=== PATIENT | female | born 1960 | race Caucasian/White ===

== ENCOUNTER → 2017-07-21 14:03 | Outpatient (CLI) | payer OTHER, SELFPAY ==
[2017-07-21 14:29] LABS: Hematocrit 37.1 % (36-46); Hemoglobin 12.6 g/dL (12.0-16.0)
[2017-07-21 14:50] LABS: HEMOLYSIS < 15 (0-50); Iron 91 ug/dL (37-170)
[2017-07-21 14:53] LABS: Blood Urea Nitrogen 17 mg/dL (7-17); Calcium 9.3 mg/dL (8.4-10.2); Carbon Dioxide 28 mmol/L (22-32); Chloride 100 mmol/L (98-107); Estimated Glomerular Filt Rate 57.1 mL/min (>60); Glucose 100 mg/dL (70-100); HEMOLYSIS < 15 (0-50); Potassium 4.5 mmol/L (3.4-5.1); Sodium 138 mmol/L (137-145)
[2017-07-21 15:01] LABS: Percent Iron Saturation 25 % (15-50); Total Iron Binding Capacity 363 ug/dL (265-497); Transferrin 295 mg/dL (206-381)
[2017-07-21 15:06] LABS: Creatinine Urine Random 19.6 mg/dL; Protein (Total) Urine Random 13 mg/dL (0-12); Protein Creatinine Ratio Urine 0.66 GRAM/24H
[2017-07-21 15:26] LABS: Ferritin 19.6 ng/mL (11.1-264)
== END ==
PROVIDERS: PCP Physician Assistant; Visit Provider Student in an Organized Health Care Education/Training Program
DX: N05.9 Unspecified nephritic syndrome with unspecified morphologic changes (principal); E50.0 Vitamin A deficiency with conjunctival xerosis; R80.9 Proteinuria, unspecified; D64.9 Anemia, unspecified; D50.0 Iron deficiency anemia secondary to blood loss (chronic)
CPT/HCPCS: 36415; 80048; 82570; 82728; 83540; 83550; 84156; 85014; 85018

== ENCOUNTER → 2017-09-25 13:01 | Outpatient (CLI) | payer OTHER, SELFPAY ==
[2017-09-25 13:36] LABS: Add Manual Diff / Slide Review NO; Basophils Percent Auto 0.6 % (0-2); Eosinophils Percent Auto 1.1 % (2-4); Hematocrit 37.6 % (36-46); Hemoglobin 12.6 g/dL (12.0-16.0); Lymphocytes Percent Auto 33.3 % (25-40); Mean Corpuscular HGB Conc 33.6 % (30-36); Mean Corpuscular Volume 89.3 fL (80-100); Neutrophils Absolute Auto 3400 /uL (3000-5900); Platelet Count 225 X10^3/uL (150-400); Red Blood Cell Count 4.21 X10^6/uL (4.0-5.2); Red Cell Distribution Width 12.7 % (11.6-14.8); White Blood Cell Count 6.1 X10^3/uL (4.5-11.0)
[2017-09-25 13:46] LABS: Appearance Urine UA CLEAR; Bilirubin Urine UA NEGATIVE (NEGATIVE); Color Urine UA YELLOW; Glucose Urine UA NEGATIVE (Normal); Ketones Urine UA NEGATIVE (NEGATIVE); Leukocyte Esterase Urine UA NEGATIVE (NEGATIVE); Nitrite Urine UA Negative (Negative); Occult Blood Urine UA 1+ (Negative); Protein Urine UA NEGATIVE (Negative); Urobilinogen Urine UA 0.2 E.U./dL (0.2); pH Urine UA 5.5 (4.5-8.0)
[2017-09-25 14:42] LABS: Free T3, Triiodothyronine Free 2.71 pg/mL (2.77-5.27)
[2017-09-25 14:55] LABS: Cortisol Random 6.66 ug/dL
[2017-09-25 14:57] LABS: TSH w/ Reflex to FT4 1.84 uIU/mL (0.47-4.68)
[2017-09-25 15:13] LABS: Vitamin B12 439 pg/mL (239-931)
== END ==
PROVIDERS: PCP Physician Assistant
DX: E03.9 Hypothyroidism, unspecified (principal); R53.83 Other fatigue
CPT/HCPCS: 36415; 81003; 82533; 82607; 84443; 84481; 85025

== ENCOUNTER → 2017-10-07 16:00 | Outpatient (CLI) | payer OTHER, SELFPAY | PROVIDERS: PCP Physician Assistant; Visit Provider Physician Assistant | DX: L02.31 Cutaneous abscess of buttock (principal) | CPT/HCPCS: 87070; 87075; 87205 ==

== ENCOUNTER → 2017-11-03 14:26 | Outpatient (CLI) | payer OTHER, SELFPAY ==
[2017-11-03 16:06] LABS: BUN Creatinine Ratio 14.5 (6-22); Blood Urea Nitrogen 16 mg/dL (7-17); Calcium 10.2 mg/dL (8.4-10.2); Carbon Dioxide 27 mmol/L (22-32); Chloride 102 mmol/L (98-107); Estimated Glomerular Filt Rate 51.2 mL/min (>60); Glucose 112 mg/dL (70-100); HEMOLYSIS < 15 (0-50); Potassium 3.9 mmol/L (3.4-5.1); Sodium 141 mmol/L (137-145)
[2017-11-03 17:57] LABS: Creatinine Urine Random 53.9 mg/dL; Protein (Total) Urine Random 10 mg/dL (0-12); Protein Creatinine Ratio Urine 0.18 GRAM/24H
== END ==
PROVIDERS: Family Provider Physician Assistant; PCP Physician Assistant; Visit Provider Student in an Organized Health Care Education/Training Program
DX: N05.9 Unspecified nephritic syndrome with unspecified morphologic changes (principal); R80.9 Proteinuria, unspecified
CPT/HCPCS: 36415; 80048; 82570; 84156

== ENCOUNTER → 2017-11-12 11:56 | Outpatient (CLI) | payer OTHER, SELFPAY ==
--- NOTE | 2017-11-12 11:58 | DI.MG.S_ITS ---
BILATERAL DIGITAL SCREENING MAMMOGRAM 3D/2D WITH CAD: 11/12/2017 CLINICAL: Routine screening. Comparison is made to exams dated: 10/23/2016 mammogram, 10/19/2015 mammogram, and 10/14/2014 mammogram - [facility]. There are scattered fibroglandular elements in both breasts. Current study was also evaluated with a Computer Aided Detection (CAD) system. No significant masses, calcifications, or other findings are seen in either breast. There has been no significant interval change. IMPRESSION: NEGATIVE There is no mammographic evidence of malignancy. A 1 year screening mammogram is recommended.(11/13/2018) NOTE: For mammograms, a report in lay terms will be sent to the patient. Approximately 15% of breast malignancies will not be visualized mammographically. In the management of a palpable breast mass, a negative mammogram must not discourage biopsy of a clinically suspicious lesion. Electronically Signed By: Darling copeland/marquise:11/12/2017 12:21:32 letter sent: Normal Exam ACR BI-RADS Category 1: Negative 3341F
== END ==
PROVIDERS: PCP Physician Assistant; Visit Provider Physician Assistant
DX: Z12.31 Encounter for screening mammogram for malignant neoplasm of breast (principal); Z78.0 Asymptomatic menopausal state; N18.9 Chronic kidney disease, unspecified; Z90.722 Acquired absence of ovaries, bilateral
CPT/HCPCS: 77063; 77067; 77080

== ENCOUNTER → 2018-01-21 08:12 | Outpatient (CLI) | payer OTHER, SELFPAY ==
[2018-01-21 08:46] LABS: Hematocrit 37.5 % (36-46); Hemoglobin 12.9 g/dL (12.0-16.0)
[2018-01-21 09:27] LABS: Blood Urea Nitrogen 16 mg/dL (7-17); Calcium 9.3 mg/dL (8.4-10.2); Carbon Dioxide 24 mmol/L (22-32); Chloride 105 mmol/L (98-107); Estimated Glomerular Filt Rate 56.9 mL/min (>60); Glucose 101 mg/dL (70-100); HEMOLYSIS < 15 (0-50); Potassium 4.3 mmol/L (3.4-5.1); Sodium 139 mmol/L (137-145)
[2018-01-21 09:28] LABS: HEMOLYSIS < 15 (0-50); Iron 64 ug/dL (37-170)
[2018-01-21 09:30] LABS: Creatinine Urine Random 56.5 mg/dL; Protein (Total) Urine Random 9 mg/dL (0-12); Protein Creatinine Ratio Urine 0.15 GRAM/24H
[2018-01-21 09:33] LABS: Cholesterol 227 mg/dL (140-199); HDL Cholesterol 72 mg/dL (40-60); LDL Cholesterol Calculated 125 mg/dL (<100); Triglycerides 150 mg/dL (35-150); Uric Acid 5.6 mg/dL (2.5-6.2)
[2018-01-21 09:39] LABS: Percent Iron Saturation 17 % (15-50); Total Iron Binding Capacity 380 ug/dL (265-497); Transferrin 332 mg/dL (206-381)
[2018-01-21 09:43] LABS: Vitamin D 25 Hydroxy (D3) 41.7 ng/mL (30.0-100.0)
[2018-01-21 10:05] LABS: Ferritin 10.5 ng/mL (11.1-264)
[2018-01-22 13:51] LABS: Parathyroid Hormone Int 4 pg/mL (14-64)
== END ==
PROVIDERS: Family Provider Physician Assistant; PCP Physician Assistant; Visit Provider Student in an Organized Health Care Education/Training Program
DX: N05.9 Unspecified nephritic syndrome with unspecified morphologic changes (principal); D50.0 Iron deficiency anemia secondary to blood loss (chronic); D64.9 Anemia, unspecified; N25.81 Secondary hyperparathyroidism of renal origin; R80.9 Proteinuria, unspecified; I10 Essential (primary) hypertension; Z13.220 Encounter for screening for lipoid disorders; Z13.6 Encounter for screening for cardiovascular disorders; R53.83 Other fatigue
CPT/HCPCS: 36415; 80048; 80061; 82306; 82570; 82728; 83540; 83550; 83970; 84156; 84550; 85014; 85018

== ENCOUNTER → 2018-01-28 16:12 | Outpatient (CLI) | payer OTHER, SELFPAY ==
[2018-01-28 17:33] LABS: Magnesium 1.9 mg/dL (1.6-2.3)
[2018-01-31 12:09] LABS: Parathyroid Hormone Int 55 pg/mL (14-64)
== END ==
PROVIDERS: PCP Physician Assistant; Visit Provider Student in an Organized Health Care Education/Training Program
DX: E83.40 Disorders of magnesium metabolism, unspecified (principal); N25.81 Secondary hyperparathyroidism of renal origin
CPT/HCPCS: 36415; 83735; 83970

== ENCOUNTER → 2018-06-05 14:07 | Outpatient (CLI) | payer OTHER, SELFPAY ==
[2018-06-05 15:08] LABS: Hematocrit 36.4 % (36-46); Hemoglobin 12.4 g/dL (12.0-16.0)
[2018-06-05 16:27] LABS: BUN Creatinine Ratio 17.3 (6-22); Blood Urea Nitrogen 19 mg/dL (7-17); Calcium 9.3 mg/dL (8.4-10.2); Carbon Dioxide 25 mmol/L (22-32); Chloride 101 mmol/L (98-107); Glucose 83 mg/dL (70-100); HEMOLYSIS < 15 (0-50); Potassium 4.1 mmol/L (3.4-5.1); Sodium 136 mmol/L (137-145)
[2018-06-05 16:29] LABS: Creatinine Urine Random 36.7 mg/dL; Protein (Total) Urine Random 10 mg/dL (0-12); Protein Creatinine Ratio Urine 0.27 GRAM/24H
[2018-06-09 15:23] LABS: Parathyroid Hormone Int 49 pg/mL (14-64)
== END ==
PROVIDERS: PCP Physician Assistant; Visit Provider Student in an Organized Health Care Education/Training Program
DX: N05.9 Unspecified nephritic syndrome with unspecified morphologic changes (principal); D64.9 Anemia, unspecified; N25.81 Secondary hyperparathyroidism of renal origin; R80.9 Proteinuria, unspecified
CPT/HCPCS: 36415; 80048; 82570; 83970; 84156; 85014; 85018

== ENCOUNTER → 2018-08-14 12:18 | Outpatient (CLI) | payer OTHER, SELFPAY ==
[2018-08-14 13:55] LABS: Blood Urea Nitrogen 17 mg/dL (7-17); Calcium 9.4 mg/dL (8.4-10.2); Carbon Dioxide 26 mmol/L (22-32); Chloride 103 mmol/L (98-107); Estimated Glomerular Filt Rate 56.9 mL/min (>60); Glucose 93 mg/dL (70-100); HEMOLYSIS < 15 (0-50); Potassium 4.8 mmol/L (3.4-5.1); Sodium 138 mmol/L (137-145)
== END ==
PROVIDERS: PCP Physician Assistant; Visit Provider Student in an Organized Health Care Education/Training Program
DX: N05.9 Unspecified nephritic syndrome with unspecified morphologic changes (principal)
CPT/HCPCS: 36415; 80048

== ENCOUNTER → 2018-11-16 13:20 | Outpatient (CLI) | payer OTHER, SELFPAY ==
--- NOTE | 2018-11-16 | DI.MG.S_ITS ---
BILATERAL DIGITAL SCREENING MAMMOGRAM 3D/2D WITH CAD: 11/16/2018 Comparison is made to exams dated: 11/12/2017 mammogram, 10/23/2016 mammogram, and 10/19/2015 mammogram - [facility]. There are scattered fibroglandular elements in both breasts. Current study was also evaluated with a Computer Aided Detection (CAD) system. No significant masses, calcifications, or other findings are seen in either breast. There has been no significant interval change. IMPRESSION: NEGATIVE There is no mammographic evidence of malignancy. A 1 year screening mammogram is recommended. This exam was interpreted at Station ID: [id number]. NOTE: For mammograms, a report in lay terms will be sent to the patient. Approximately 15% of breast malignancies will not be visualized mammographically. In the management of a palpable breast mass, a negative mammogram must not discourage biopsy of a clinically suspicious lesion. Electronically Signed By: Fam hamilton/marquise:11/16/2018 14:56:02 letter sent: Normal Exam ACR BI-RADS Category 1: Negative 3341F
== END ==
PROVIDERS: PCP Physician Assistant; Visit Provider Physician Assistant
DX: Z12.31 Encounter for screening mammogram for malignant neoplasm of breast (principal)
CPT/HCPCS: 77063; 77067

== ENCOUNTER → 2018-12-21 08:17 | Outpatient (CLI) | payer OTHER, SELFPAY ==
[2018-12-21 09:09] LABS: Hematocrit 37.4 % (36-46); Hemoglobin 12.9 g/dL (12.0-16.0)
[2018-12-21 10:02] LABS: Alanine Aminotransferase 21 IU/L (<35); Albumin 4.4 g/dL (3.5-5.0); Albumin Globulin Ratio 1.5 (1.0-2.8); Alkaline Phosphatase 45 U/L (38-126); Aspartate Aminotransferase 29 IU/L (14-36); BUN Creatinine Ratio 15.6 (6-22); Bilirubin Total 0.5 mg/dL (0.2-1.3); Blood Urea Nitrogen 14 mg/dL (7-17); Calcium 9.4 mg/dL (8.4-10.2); Carbon Dioxide 26 mmol/L (22-32); Chloride 103 mmol/L (98-107); Cholesterol 232 mg/dL (140-199); Estimated Glomerular Filt Rate > 60.0 mL/min (>60); Glucose 102 mg/dL (70-100); HDL Cholesterol 57 mg/dL (40-60); HEMOLYSIS < 15 (0-50); LDL Cholesterol Calculated 132 mg/dL (<100); Potassium 4.2 mmol/L (3.4-5.1); Sodium 138 mmol/L (137-145); Total Protein 7.4 g/dL (6.3-8.2); Triglycerides 217 mg/dL (35-150)
[2018-12-21 10:45] LABS: Creatinine Urine Random 82.9 mg/dL
[2018-12-21 10:47] LABS: Creatinine Urine Random 83.5 mg/dL; Microalbumi Creatinin Ratio Ur 16.8 ug/mg CR (<30); Microalbumin Urine Random 1.4 mg/dL (0-1.6); Protein (Total) Urine Random 10 mg/dL (0-12); Protein Creatinine Ratio Urine 0.11 GRAM/24H
[2018-12-25 15:45] LABS: Parathyroid Hormone Int 25 pg/mL (14-64)
== END ==
PROVIDERS: Family Provider Student in an Organized Health Care Education/Training Program; PCP Physician Assistant; Visit Provider Physician Assistant
DX: N05.9 Unspecified nephritic syndrome with unspecified morphologic changes (principal); D64.9 Anemia, unspecified; N25.81 Secondary hyperparathyroidism of renal origin; R80.9 Proteinuria, unspecified; E03.9 Hypothyroidism, unspecified; E78.5 Hyperlipidemia, unspecified; I10 Essential (primary) hypertension; N18.3 Chronic kidney disease, stage 3 (moderate)
CPT/HCPCS: 36415; 80053; 80061; 82043; 82570; 83970; 84156; 84443; 85014; 85018

== ENCOUNTER → 2019-02-12 08:48 | Outpatient (CLI) | payer OTHER, SELFPAY ==
[2019-02-12 10:18] LABS: Blood Urea Nitrogen 13 mg/dL (7-17); Calcium 9.5 mg/dL (8.4-10.2); Carbon Dioxide 26 mmol/L (22-32); Chloride 103 mmol/L (98-107); Cholesterol 208 mg/dL (140-199); Estimated Glomerular Filt Rate 56.7 mL/min (>60); Glucose 99 mg/dL (70-100); HDL Cholesterol 72 mg/dL (40-60); HEMOLYSIS < 15 (0-50); LDL Cholesterol Calculated 96 mg/dL (<100); Potassium 4.5 mmol/L (3.4-5.1); Sodium 138 mmol/L (137-145); Triglycerides 201 mg/dL (35-150)
== END ==
PROVIDERS: PCP Physician Assistant; Visit Provider Physician Assistant
DX: E78.5 Hyperlipidemia, unspecified (principal); I10 Essential (primary) hypertension
CPT/HCPCS: 36415; 80048; 80061

== ENCOUNTER → 2019-04-08 12:09 | Outpatient (CLI) | payer OTHER, SELFPAY ==
[2019-04-08 13:02] LABS: Hematocrit 39.2 % (36-46); Hemoglobin 13.2 g/dL (12.0-16.0)
[2019-04-08 13:12] LABS: BUN Creatinine Ratio 21.1 (6-22); Blood Urea Nitrogen 19 mg/dL (7-17); Calcium 9.6 mg/dL (8.4-10.2); Carbon Dioxide 27 mmol/L (22-32); Chloride 103 mmol/L (98-107); Estimated Glomerular Filt Rate > 60.0 mL/min (>60); Glucose 103 mg/dL (70-100); HEMOLYSIS < 15 (0-50); Potassium 4.4 mmol/L (3.4-5.1); Sodium 139 mmol/L (137-145)
[2019-04-08 15:37] LABS: Creatinine Urine Random 130.6 mg/dL; Protein (Total) Urine Random 10 mg/dL (0-12); Protein Creatinine Ratio Urine 0.07 GRAM/24H
[2019-04-10 15:29] LABS: Parathyroid Hormone Int 23 pg/mL (14-64)
== END ==
PROVIDERS: PCP Physician Assistant; Referring Provider Student in an Organized Health Care Education/Training Program; Visit Provider Student in an Organized Health Care Education/Training Program
DX: N05.9 Unspecified nephritic syndrome with unspecified morphologic changes (principal); D64.9 Anemia, unspecified; N25.81 Secondary hyperparathyroidism of renal origin; R80.9 Proteinuria, unspecified
CPT/HCPCS: 36415; 80048; 82570; 83970; 84156; 85014; 85018

== ENCOUNTER → 2019-04-13 13:51 | Outpatient (CLI) | payer OTHER, SELFPAY ==
[2019-04-13 14:30] LABS: Influenza A - CEPHEID Flu A NEGATIVE (NEGATIVE); Influenza B - CEPHEID Flu B NEGATIVE (NEGATIVE)
== END ==
PROVIDERS: PCP Physician Assistant; Visit Provider Physician Assistant
DX: R68.89 Other general symptoms and signs (principal)
CPT/HCPCS: 87502

== ENCOUNTER → 2019-09-08 15:08 | Outpatient (CLI) | payer OTHER, SELFPAY ==
[2019-09-08 15:27] LABS: Bacteria Urine None Seen; WBC Urine None Seen (0-5/HPF)
[2019-09-08 16:09] LABS: Appearance Urine UA CLEAR; Bilirubin Urine UA NEGATIVE (NEGATIVE); Color Urine UA YELLOW; Glucose Urine UA NEGATIVE (Negative); Ketones Urine UA NEGATIVE (NEGATIVE); Leukocyte Esterase Urine UA NEGATIVE (NEGATIVE); Nitrite Urine UA NEGATIVE (Negative); Occult Blood Urine UA 2+ (Negative); Protein Urine UA NEGATIVE (Negative); Urobilinogen Urine UA 0.2 E.U./dL (0.2)
[2019-09-08 16:11] LABS: Add Manual Diff / Slide Review NO; Basophils Absolute Auto 100 /uL (0-100); Basophils Percent Auto 0.7 % (0-2); Eosinophils Absolute Auto 100 /uL (0-450); Eosinophils Percent Auto 1.3 % (2-4); Hematocrit 37.6 % (36-46); Hemoglobin 12.6 g/dL (12.0-16.0); Lymphocytes Absolute Auto 1900 /uL (1100-4500); Lymphocytes Percent Auto 24.6 % (25-40); Mean Corpuscular HGB Conc 33.5 % (30-36); Mean Corpuscular Hemoglobin 30.4 PG (26-34); Mean Corpuscular Volume 90.7 fL (80-100); Monocytes Absolute Auto 500 /uL (0-900); Monocytes Percent Auto 6.5 % (3-14); Neutrophils Absolute Auto 5100 /uL (1500-7000); Neutrophils Percent Auto 66.9 % (50-75); Platelet Count 256 X10^3/uL (150-400); Red Blood Cell Count 4.15 X10^6/uL (4.0-5.2); Red Cell Distribution Width 12.5 % (11.6-14.8); White Blood Cell Count 7.7 X10^3/uL (4.5-11.0)
[2019-09-08 16:14] LABS: Culture Indicated Urine Cult Not Indicated; RBC Urine 1-5/HPF (0-5/HPF); Squamous Epithelial Cell Urine 0-1 /HPF (0-5/HPF)
[2019-09-08 16:15] LABS: Creatinine Urine Random 94.4 mg/dL; Protein (Total) Urine Random 6 mg/dL (0-12); Protein Creatinine Ratio Urine 0.06 GRAM/24H
[2019-09-08 16:20] LABS: HEMOLYSIS 19 (0-50); Iron 95 ug/dL (37-170)
[2019-09-08 16:22] LABS: Albumin 4.4 g/dL (3.5-5.0); BUN Creatinine Ratio 18.7 (6-22); Blood Urea Nitrogen 20 mg/dL (7-17); Calcium 9.7 mg/dL (8.4-10.2); Carbon Dioxide 27 mmol/L (22-32); Chloride 102 mmol/L (98-107); Estimated Glomerular Filt Rate 52.5 mL/min (>60); Glucose 107 mg/dL (70-100); HEMOLYSIS < 15 (0-50); Magnesium 1.8 mg/dL (1.6-2.3); Phosphorous 3.5 mg/dL (2.5-4.5); Potassium 4.1 mmol/L (3.4-5.1); Sodium 136 mmol/L (137-145)
[2019-09-08 16:32] LABS: Percent Iron Saturation 28 % (15-50); Total Iron Binding Capacity 338 ug/dL (265-497); Transferrin 281 mg/dL (206-381)
[2019-09-08 16:36] LABS: Vitamin D 25 Hydroxy (D3) 37.6 ng/mL (30.0-100.0)
[2019-09-09 08:11] LABS: Parathyroid Hormone Int 40 pg/mL (15-65)
== END ==
PROVIDERS: PCP Internal Medicine; Referring Provider Internal Medicine Nephrology; Visit Provider Internal Medicine Nephrology
DX: N18.3 Chronic kidney disease, stage 3 (moderate) (principal); N25.81 Secondary hyperparathyroidism of renal origin; D63.1 Anemia in chronic kidney disease
CPT/HCPCS: 36415; 80069; 81001; 82306; 82570; 83540; 83550; 83735; 83970; 84156; 85025

== ENCOUNTER → 2019-09-13 13:24 | Outpatient (CLI) | payer OTHER, SELFPAY ==
[2019-09-13 14:27] LABS: Estimated Glomerular Filt Rate 57.4 mL/min (>60)
[2019-09-13 16:24] LABS: Collection Time Urine 24 Hours; Creatinine Urine Random 64.7 mg/dL; Patient Height Urine 63 inches; Patient Weight Urine 160 lbs; Total Volume Urine 1500 mL
[2019-09-14 00:29] LABS: Creat Clearance, Corrected 67.2 mL/MIN; Creatinine Clearance Urine 68.1 mL/MIN; Creatinine, Serum (CRCL) 0.99 mg/dL (0.52-1.04)
[2019-09-14 06:06] LABS: 24 Hour Ur Protein Calculated 72 mg/24 hr (30-150)
== END ==
PROVIDERS: PCP Internal Medicine; Referring Provider Internal Medicine Nephrology; Visit Provider Internal Medicine Nephrology
DX: N18.3 Chronic kidney disease, stage 3 (moderate) (principal); N25.81 Secondary hyperparathyroidism of renal origin
CPT/HCPCS: 36415; 82565; 82575; 84156

== ENCOUNTER → 2019-11-19 15:12 | Outpatient (CLI) | payer OTHER, SELFPAY ==
--- NOTE | 2019-11-19 | DI.MG.S_ITS ---
BILATERAL DIGITAL SCREENING MAMMOGRAM 3D/2D WITH CAD: 11/19/2019 CLINICAL: Routine screening. Comparison is made to exams dated: 11/16/2018 mammogram, 11/12/2017 mammogram, and 10/23/2016 mammogram - [facility]. There are scattered fibroglandular elements in both breasts. Current study was also evaluated with a Computer Aided Detection (CAD) system. No significant masses, calcifications, or other findings are seen in either breast. There has been no significant interval change. IMPRESSION: NEGATIVE There is no mammographic evidence of malignancy. A 1 year screening mammogram is recommended. This exam was interpreted at Station ID: [id number]. NOTE: For mammograms, a report in lay terms will be sent to the patient. Approximately 15% of breast malignancies will not be visualized mammographically. In the management of a palpable breast mass, a negative mammogram must not discourage biopsy of a clinically suspicious lesion. Electronically Signed By: Fam hamilton/marquise:11/19/2019 17:05:23 letter sent: Normal Exam ACR BI-RADS Category 1: Negative 3341F
== END ==
PROVIDERS: PCP Internal Medicine; Referring Provider Internal Medicine; Visit Provider Internal Medicine
DX: Z12.31 Encounter for screening mammogram for malignant neoplasm of breast (principal)
CPT/HCPCS: 77063; 77067

== ENCOUNTER → 2020-03-06 10:10 | Outpatient (CLI) | payer OTHER, SELFPAY ==
[2020-03-06 10:55] LABS: Add Manual Diff / Slide Review NO; Basophils Absolute Auto 0 /uL (0-100); Basophils Percent Auto 0.5 % (0-2); Eosinophils Absolute Auto 100 /uL (0-450); Eosinophils Percent Auto 1.6 % (2-4); Hematocrit 39.4 % (36-46); Lymphocytes Absolute Auto 1500 /uL (1100-4500); Lymphocytes Percent Auto 24.4 % (25-40); Mean Corpuscular HGB Conc 32.9 % (30-36); Mean Corpuscular Hemoglobin 29.3 PG (26-34); Mean Corpuscular Volume 88.9 fL (80-100); Monocytes Absolute Auto 500 /uL (0-900); Neutrophils Absolute Auto 3900 /uL (1500-7000); Neutrophils Percent Auto 64.5 % (50-75); Platelet Count 236 X10^3/uL (150-400); Red Blood Cell Count 4.43 X10^6/uL (4.0-5.2); Red Cell Distribution Width 12.2 % (11.6-14.8); White Blood Cell Count 6.1 X10^3/uL (4.5-11.0)
[2020-03-06 11:25] LABS: Alanine Aminotransferase 17 IU/L (<35); Albumin 4.5 g/dL (3.5-5.0); Albumin Globulin Ratio 1.4 (1.0-2.8); Alkaline Phosphatase 49 U/L (38-126); Aspartate Aminotransferase 26 IU/L (14-36); BUN Creatinine Ratio 16.2 (6-22); Bilirubin Total 0.3 mg/dL (0.2-1.3); Blood Urea Nitrogen 18 mg/dL (7-17); Calcium 9.3 mg/dL (8.4-10.2); Carbon Dioxide 29 mmol/L (22-32); Chloride 102 mmol/L (98-107); Cholesterol 201 mg/dL (140-199); Estimated Glomerular Filt Rate 50.1 mL/min (>60); Globulin 3.3 g/dL (1.7-4.1); Glucose 103 mg/dL (80-110); HDL Cholesterol 65 mg/dL (40-60); HEMOLYSIS < 15 (0-50); LDL Cholesterol Calculated 97 mg/dL (<100); Potassium 4.1 mmol/L (3.4-5.1); Sodium 136 mmol/L (137-145); Total Protein 7.8 g/dL (6.3-8.2); Triglycerides 195 mg/dL (35-150)
[2020-03-06 11:53] LABS: Free T4, Direct Thyroxine 1.37 ng/dL (0.78-2.19)
[2020-03-06 12:07] LABS: Thyroid Stimulating Hormone 1.22 uIU/mL (0.47-4.68)
== END ==
PROVIDERS: PCP Internal Medicine; Referring Provider Internal Medicine; Visit Provider Internal Medicine
DX: E03.9 Hypothyroidism, unspecified (principal); E78.5 Hyperlipidemia, unspecified; I10 Essential (primary) hypertension; N18.30 Chronic kidney disease, stage 3 unspecified
CPT/HCPCS: 36415; 80053; 80061; 84439; 84443; 85025

== ENCOUNTER → 2020-05-18 13:28 | Outpatient (CLI) | payer OTHER, SELFPAY ==
[2020-05-18] MEDS: COVID-19 VACC, Ad26(JANSSEN)/PF 0.5 ML IM (13:34)
== END ==
PROVIDERS: PCP Internal Medicine; Visit Provider Internal Medicine
DX: Z23 Encounter for immunization (principal)
CPT/HCPCS: 0031A; 91303

== ENCOUNTER → 2020-08-11 10:17 | Outpatient (CLI) | payer OTHER, SELFPAY ==
[2020-08-11 11:44] LABS: Add Manual Diff / Slide Review NO; Basophils Absolute Auto 0 /uL (0-100); Basophils Percent Auto 0.8 % (0-2); Eosinophils Absolute Auto 100 /uL (0-450); Eosinophils Percent Auto 2.1 % (2-4); Hematocrit 38.5 % (36-46); Hemoglobin 12.9 g/dL (12.0-16.0); Lymphocytes Absolute Auto 1500 /uL (1100-4500); Lymphocytes Percent Auto 24.8 % (25-40); Mean Corpuscular HGB Conc 33.4 % (30-36); Mean Corpuscular Hemoglobin 29.4 PG (26-34); Monocytes Absolute Auto 600 /uL (0-900); Monocytes Percent Auto 9.5 % (3-14); Neutrophils Absolute Auto 3800 /uL (1500-7000); Neutrophils Percent Auto 62.8 % (50-75); Platelet Count 237 X10^3/uL (150-400); Red Blood Cell Count 4.38 X10^6/uL (4.0-5.2); Red Cell Distribution Width 12.7 % (11.6-14.8); White Blood Cell Count 6.1 X10^3/uL (4.5-11.0)
[2020-08-11 12:05] LABS: Alanine Aminotransferase 21 IU/L (<35); Albumin 4.4 g/dL (3.5-5.0); Albumin Globulin Ratio 1.4 (1.0-2.8); Alkaline Phosphatase 49 U/L (38-126); Amylase 117 U/L (30-110); Aspartate Aminotransferase 32 IU/L (14-36); BUN Creatinine Ratio 15.2 (6-22); Bilirubin Total 0.4 mg/dL (0.2-1.3); Blood Urea Nitrogen 16 mg/dL (7-17); C-Reactive Protein Quant 0.8 mg/dL (<1.0); Calcium 9.4 mg/dL (8.4-10.2); Carbon Dioxide 28 mmol/L (22-32); Chloride 103 mmol/L (98-107); Estimated Glomerular Filt Rate 53.5 mL/min (>60); Globulin 3.2 g/dL (1.7-4.1); Glucose 85 mg/dL (80-110); HEMOLYSIS < 15 (0-50); Lipase 202 U/L (23-300); Potassium 3.9 mmol/L (3.4-5.1); Sodium 138 mmol/L (137-145); Total Protein 7.6 g/dL (6.3-8.2)
[2020-08-11 12:06] LABS: Erythrocyte Sedimentation Rate 8 MM/HR (0-20)
[2020-08-11 12:46] LABS: Free T3, Triiodothyronine Free 2.93 pg/mL (2.77-5.27); Free T4, Direct Thyroxine 1.19 ng/dL (0.78-2.19)
[2020-08-11 12:59] LABS: Thyroid Stimulating Hormone 1.67 uIU/mL (0.47-4.68)
== END ==
PROVIDERS: PCP Internal Medicine; Referring Provider Internal Medicine; Visit Provider Internal Medicine
DX: E03.9 Hypothyroidism, unspecified (principal); E78.5 Hyperlipidemia, unspecified; I10 Essential (primary) hypertension; N18.30 Chronic kidney disease, stage 3 unspecified
CPT/HCPCS: 36415; 80053; 82150; 83690; 84439; 84443; 84481; 85025; 85651; 86140

== ENCOUNTER → 2020-08-21 09:14 | Outpatient (CLI) | payer OTHER, SELFPAY ==
--- NOTE | 2020-08-21 09:15 | DI.US.S_ITS ---
PROCEDURE: US ABDOMEN COMPLETE INDICATIONS: NAUSEA AND VOMITING TECHNIQUE: Real-time scanning was performed of the abdominal and retroperitoneal organs, with image documentation. COMPARISON: None. FINDINGS: Liver: Liver is normal in size. Increased hepatic parenchymal echogenicity. Gallbladder: Normally distended and unremarkable gallbladder. Biliary ducts: No intrahepatic or extrahepatic biliary ductal dilatation. Pancreas: Not well visualized; visualized portions are normal. Spleen: Normal size and appearance of the spleen. Kidneys: Status post right nephrectomy. Left kidney is normal. Aorta: Visualized aorta is normal in caliber at less than 3 cm. Iliacs: Proximal common iliac arteries are normal in caliber at less than 2.5 cm. IVC: Intrahepatic inferior vena cava is patent. Miscellaneous: No free abdominal fluid. IMPRESSION: Mild hepatic steatosis. Status post right nephrectomy. Otherwise normal study. Dictated by: Mohsen Jay M.D. on 08/21/2020 at 10:44 Approved by: Mohsen Jay M.D. on 08/21/2020 at 10:47
== END ==
PROVIDERS: PCP Internal Medicine; Referring Provider Internal Medicine; Visit Provider Internal Medicine
DX: R11.2 Nausea with vomiting, unspecified (principal); K76.0 Fatty (change of) liver, not elsewhere classified; Z90.5 Acquired absence of kidney
CPT/HCPCS: 76700

== ENCOUNTER → 2020-10-03 14:01 | Outpatient (CLI) | payer OTHER, SELFPAY ==
[2020-10-04 11:16] LABS: Adenovirus F 40/41 Not Detected (Not Detect); Astrovirus Not Detected (Not Detect); Campylobacter Not Detected (Not Detect); Clostridium difficile toxin AB Not Detected (Not Detect); Cryptosporidium Not Detected (Not Detect); Cyclospora cayetanensis Not Detected (Not Detect); Entamoeba histolytica Not Detected (Not Detect); Enteroaggregative E.coli Not Detected (Not Detect); Enteropathogenic E.coli Not Detected (Not Detect); Enterotoxigenic E.coli It/st Not Detected (Not Detect); Giardia lamblia Not Detected (Not Detect); Norovirus GI/GII Not Detected (Not Detect); Plesiomonsa shigelloides Not Detected (Not Detect); Rotavirus A Not Detected (Not Detect); Salmonella Not Detected (Not Detect); Sapovirus Not Detected (Not Detect); Shiga-like toxin-prod E.coli Not Detected (Not Detect); Shigella/Enteroinvasive E.coli Not Detected (Not Detect); Vibrio Not Detected (Not Detect); Vibrio cholerae Not Detected (Not Detect); Yersinia enterocolitica Not Detected (Not Detect)
== END ==
PROVIDERS: PCP Internal Medicine; Referring Provider Internal Medicine Gastroenterology; Visit Provider Internal Medicine Gastroenterology
DX: R19.7 Diarrhea, unspecified (principal); R11.0 Nausea; R19.4 Change in bowel habit
CPT/HCPCS: 87507

== ENCOUNTER → 2020-10-13 11:08 | Outpatient (CLI) | payer OTHER, SELFPAY ==
[2020-10-13 11:41] LABS: Add Manual Diff / Slide Review NO; Basophils Absolute Auto 100 /uL (0-100); Basophils Percent Auto 0.9 % (0-2); Eosinophils Absolute Auto 100 /uL (0-450); Eosinophils Percent Auto 1.7 % (2-4); Hematocrit 37.9 % (36-46); Hemoglobin 12.9 g/dL (12.0-16.0); Lymphocytes Absolute Auto 1600 /uL (1100-4500); Lymphocytes Percent Auto 22.4 % (25-40); Mean Corpuscular HGB Conc 33.9 % (30-36); Mean Corpuscular Hemoglobin 29.7 PG (26-34); Mean Corpuscular Volume 87.6 fL (80-100); Monocytes Absolute Auto 600 /uL (0-900); Monocytes Percent Auto 9.1 % (3-14); Neutrophils Absolute Auto 4600 /uL (1500-7000); Neutrophils Percent Auto 65.9 % (50-75); Platelet Count 238 X10^3/uL (150-400); Red Blood Cell Count 4.33 X10^6/uL (4.0-5.2); Red Cell Distribution Width 12.3 % (11.6-14.8)
[2020-10-13 11:55] LABS: HEMOLYSIS < 15 (0-50); Iron 77 ug/dL (37-170)
[2020-10-13 11:58] LABS: Albumin 4.6 g/dL (3.5-5.0); BUN Creatinine Ratio 17.9 (6-22); Blood Urea Nitrogen 19 mg/dL (7-17); Calcium 9.4 mg/dL (8.4-10.2); Carbon Dioxide 28 mmol/L (22-32); Chloride 102 mmol/L (98-107); Estimated Glomerular Filt Rate 52.9 mL/min (>60); Glucose 103 mg/dL (80-110); HEMOLYSIS < 15 (0-50); Magnesium 1.7 mg/dL (1.6-2.3); Phosphorous 3.3 mg/dL (2.8-4.1); Potassium 3.9 mmol/L (3.4-5.1); Sodium 135 mmol/L (137-145)
[2020-10-13 12:06] LABS: Percent Iron Saturation 23 % (15-50); Total Iron Binding Capacity 337 ug/dL (265-497); Transferrin 294 mg/dL (206-381)
[2020-10-13 12:11] LABS: Vitamin D 25 Hydroxy (D3) 40.5 ng/mL (30.0-100.0)
[2020-10-13 12:14] LABS: Creatinine Urine Random 43.6 mg/dL; Protein (Total) Urine Random 8 mg/dL (0-12); Protein Creatinine Ratio Urine 0.18 GRAM/24H
[2020-10-14 10:09] LABS: Parathyroid Hormone Int 30 pg/mL (15-65)
== END ==
PROVIDERS: PCP Internal Medicine; Referring Provider Internal Medicine Nephrology; Visit Provider Internal Medicine Nephrology
DX: N18.31 Chronic kidney disease, stage 3a (principal); D63.1 Anemia in chronic kidney disease; N25.81 Secondary hyperparathyroidism of renal origin
CPT/HCPCS: 36415; 80069; 82306; 82570; 83540; 83550; 83735; 83970; 84156; 85025

== ENCOUNTER → 2020-11-13 10:26 | Outpatient (CLI) | payer OTHER, SELFPAY ==
[2020-11-13 17:46] LABS: COVID19 -Nasal RAPID Negative (Negative)
== END ==
PROVIDERS: PCP Internal Medicine; Referring Provider Nurse Practitioner Family; Visit Provider Nurse Practitioner Family
DX: Z20.822 Contact with and (suspected) exposure to COVID-19 (principal); Z01.812 Encounter for preprocedural laboratory examination
CPT/HCPCS: 87635

== ENCOUNTER 2020-11-14 12:54 | Day surgery (SDC) | payer OTHER, SELFPAY ==
--- NOTE | 2020-11-14 | PATH_ITS ---
[facility] Accession Number: [id number] . 01 Material submitted: . PART A: duodenum - DUODENUM PART B: stomach - ANTRUM PART C: gastrointestinal site - GASTRIC POLYP PART D: colon - RANDOM COLON PART E: sigmoid colon - SIGMOID POLYP . 02 Diagnosis: A. Duodenum, Biopsy: Duodenal mucosa with no diagnostic abnormality. Negative for active inflammation, features of sprue, dysplasia, or malignancy. . B. Stomach, Antrum, Biopsy: Antral mucosa with mild chronic gastritis. Negative for Helicobacter by immunohistochemistry. Negative for intestinal metaplasia. Negative for dysplasia and malignancy. . C. Stomach, Polyp, Biopsy: Body-type mucosa with a few dilated glands, consistent with fundic gland polyp. No evidence of Helicobacter on H/E stain. Negative for intestinal metaplasia. Negative for dysplasia and malignancy. . D. Random Colon, Biopsies: Colonic mucosa with no diagnostic abnormality. Negative for active, chronic, and microscopic colitis. Negative for dysplasia and malignancy. . E. Sigmoid Colon, Polyp, Biopsy: Tubular adenoma. MRV 11/17/2020 1519 Local . 02 Electronically signed: . Sun Allred MD, Pathologist NPI- [id number] . 01 Gross description: . Part A: DUODENUM: Received in formalin are 2 fragment(s) of welsh, soft tissue measuring 0.4 x 0.3 x 0.2 cm to 0.3 x 0.2 x 0.2 cm submitted entirely in 1 cassette(s) Part B: ANTRUM: Received in formalin is 1 fragment(s) of welsh, soft tissue measuring 0.5 x 0.3 x 0.1 cm submitted entirely in 1 cassette(s) Part C: GASTRIC POLYP: Received in formalin is 1 fragment(s) of welsh, soft tissue measuring 0.3 x 0.2 x 0.1 cm submitted entirely in 1 cassette(s) Part D: RANDOM COLON: Received in formalin are 3 fragment(s) of welsh, soft tissue measuring 0.4 x 0.3 x 0.2 cm to 0.1 x 0.1 x 0.1 cm submitted entirely in 1 cassette(s) Part E: SIGMOID POLYP: Received in formalin is 1 fragment(s) of welsh, soft tissue measuring 0.4 x 0.3 x 0.3 cm submitted entirely in 1 cassette(s) /MEHREEN 11/15/2020 0250 Local . 02 Microscopic: . B. An immunohistochemical stain was performed to evaluate for Helicobacter organisms and is negative. The control stain showed appropriate reactivity. . * This test was developed and its performance characteristics determined by [facility]. It has not been cleared or approved by the U.S. Food and Drug Administration. The FDA has determined that such clearance or approval is not necessary. This test is used for clinical purposes. It should not be regarded as investigational or for research. . 02 Pathologist provided ICD-10: R19.7, R12, D12.5 . 02 CPT . 673245, 716502, 342356, 072179, 625515, [id number] Performed at: 01 [facility] [address] [address], [place], [place] [id number] MD Favio Zamudio MD Phone: [phone] Performed at: [address] [facility] [address] [address] [place], [place] [id number] MD Sun Allred MD Phone: [phone]
[2020-11-14 13:21] VITALS: BP 124/77; PULSE 70; RESP 16; TEMP 36.2; O2SAT 98; BMI 29.2
[2020-11-14] MEDS: SODIUM CHLORIDE 0.9% 1,000 ML 84 ML IV (13:40)
--- NOTE | 2020-11-14 13:50 | P.HP_ITS ---
History of Present Illness History of Present Illness Date Patient Seen: 11/14/20 Time Patient Seen: 13:50 Chief complaint: EGD COLONOSCOPY Narrative: I reviewed my note from October 02, 2020. No significant changes although she has not had any further black stools. Patient History Medical History Asthma Benign cystic nephroma Essential hypertension Herpes History of pacemaker Hyperlipidemia Hypothyroidism Incisional hernia Macromastia Menopause Shoulder pain Sinusitis Solitary left kidney Surgical History History of delivery History of nephrectomy (10/30/16) History of umbilical hernia repair Hx of section (1991) Hx of hysterectomy (2007) Hx of tonsillectomy Family & Social History Family History Brother Atrial fibrillation, unspecified type Brother Atrial fibrillation, unspecified type Father Atrial fibrillation, unspecified type History of pacemaker Brother No problems noted. Social History: household members spouse Tobacco & Substance use: Smoking Status Never smoker alcohol intake current alcohol intake frequency a few times a week Substance Use Type does not use Meds Home Medications and Allergies Home Medications Medication Instructions Recorded Confirmed Type hydrochlorothiazide 12.5 mg tablet 12.5 mg PO DAILY tab 04/26/19 11/14/20 History losartan 100 mg tablet 100 mg PO DAILY tab 04/26/19 11/14/20 History valacyclovir 500 mg tablet 1,000 mg PO Q12H PRN #20 tab 04/26/19 11/14/20 Rx levothyroxine 75 mcg tablet 75 mcg PO QDAY #90 tab 11/24/19 08/11/20 Rx (Synthroid) trazodone 50 mg tablet 50 mg PO BEDTIME PRN #90 tab 03/06/20 11/14/20 Rx atorvastatin 10 mg tablet 10 mg PO BEDTIME #90 tab 08/22/20 11/14/20 Rx estradiol 0.5 mg tablet 0.5 mg PO DAILY #90 tab 11/14/20 11/14/20 Rx Allergies Allergy/AdvReac Type Severity Reaction Status Date / Time codeine [CODEINE] AdvReac Intermediate NAUSEA Verified 11/14/20 13:17 tetanus and diphtheria AdvReac Intermediate REDNESS, Verified 11/14/20 13:17 toxoids SWELLING [TETANUS AND DIPHTHERIA TOXOIDS] metoprolol AdvReac bradycardia/weakness Verified 11/14/20 13:[address] Pierson Review of Systems Review of Systems ROS: Yes All systems reviewed with the patient and are negative except as otherwise documented Exam Vital Signs (past 8 hours): - 11/14/20 13:21 Temperature 97.2 F L Pulse Rate 70 Respiratory Rate 16 Blood Pressure 124/77 Pulse Oximetry 98 Oxygen Delivery Method Room Air Const General: cooperative and comfortable Orientation: alert HENIA Head: normocephalic Ears: external ears normal Nose: external nose normal Face and sinus: normal facial exam Mouth: oral mucosae normal Eyes General: appearance normal, both eyes and all related structures Neck Neck: normal visual inspection Chest Chest: normal inspection of the chest Resp Effort & Inspection: normal respiratory effort Auscultation: clear to auscultation bilaterally Cardio Rate: regular rate Rhythm: regular rhythm Heart Sounds: no murmurs GI Inspection: normal to inspection Palpation: soft and No tender Auscultation: normal bowel sounds Skin General: no rashes or lesions noted and No jaundice Neuro General: patient alert and moves all extremities Cognition: normal cognition Speech: speech normal Extrem General: no pedal edema Psych Appearance: grossly normal Assessment & Plan Assessment & Plan narrative: 59-year-old female with a change in bowel habit now with a tendency towards diarrhea chronic fatigue nausea without vomiting bl oating. Both EGD and colonoscopy are thus pursued today. She is also experiencing heartburn. Time Spent With Patient Critical Care time: I spent a total of [] minutes of critical care time on this patient's care today; this time is exclusive of procedural time.
--- NOTE | 2020-11-14 13:52 | PM.PREOP ---
Pre-operative Note COVID-19 COVID-19 status: Negative Result date/Date tested (Pos, Neg/Pending): 11/13/20 Interval Note History & Physical reviewed/Exam performed by Physician: Yes Changes to H&P: Yes ASA Class (for procedural sedation): II
--- NOTE | 2020-11-14 14:25 | P.OP.EGD&C_ITS ---
Operative Date/Time/Diagnoses Date of procedure: 11/14/20 Time of procedure: 14:25 Pre-op diagnosis: Heartburn nausea diarrhea fatigue Post-op diagnosis: same Procedure & Clinicians Study performed: EGD with biopsies, colonoscopy with biopsies and cold snare polypectomy Same procedure as scheduled: Yes Indications: Heartburn nausea diarrhea fatigue Surgeon: Jordon Rivera Procedure Notes SCOAP/Timeout: Done Procedure in detail: After the risks and benefits were explained, written and verbal informed consent was obtained. The patient was brought into the procedure room and placed into the left lateral decubitus position. Please see nurse sergeant at arms note for sedation details. The scope was introduced into the mouth through the bite block and advanced under direct visualization to the 2nd portion of the duodenum. The scope was slowly withdrawn carefully examining the mucosa for any defects or lesions. Retroflexed views were accomplished in the stomach. The stomach was decompressed, the scope was then removed from the patient who tolerated the procedure well. The patient was then turned around a digital rectal examination accomplished no significant pathology appreciated. The scope was introduced into the rectum and advanced under direct visualization to the level of the cecum as identified by the appendiceal orifice and ileocecal valve. The terminal ileum was interrogated the scope was then slowly withdrawn to carefully examine the mucosa for any defects or lesions. Multiple direct views were made through the dentate line for exclusion of pathology the colon was decompressed and scope removed the patient who tolerated the procedure well. Scope withdrawal time: 11 minutes Sedation minutes: 28 Complications: none Impression: 1. Duodenum: The mucosa appeared visually normal from the bulb through to the 2nd portion. Random biopsies were taken from the 2nd portion of the duodenum for exclusion of sprue. 2. Stomach: There was a very mild gastropathy appreciated in the antrum. Random antral biopsies were acquired for exclusion of H pylori infection. Otherwise retroflexed views of the LES were unremarkable. There was a diminutive polyp in the proximal body removed with cold forceps. 3. Esophagus: The squamocolumnar junction correlated quite nicely with the top of the gastric folds. GEJ was at approximately 35 cm from the incisors. No acute or erosive changes no strictures no mass lesions. 4. Colon: No proctitis no colitis throughout. Random colon biopsies were taken for exclusion of microscopic colitis. There was a small 5 mm sessile polyp in the sigmoid colon that we initially worked up to cautery for hot snare. The snare came through this cold. No sustained bleeding. 5. Terminal ileum: This appeared visually within normal limits. Post-procedure Recommendations: Colonscopy in 5 years Plan for aftercare: 1. Await histopathology 2. If the polyp is confirmed adenomatous, repeat colonoscopy will be suggested for 5 years. Follow up on symptoms in GI clinic. Disposition: PACU
[2020-11-14 14:29] VITALS: BP 85/35; PULSE 62; RESP 16; TEMP 36.7; O2SAT 98
[2020-11-14 14:33] VITALS: BP 88/41; PULSE 59; RESP 14; O2SAT 98
[2020-11-14 14:39] VITALS: BP 113/54; PULSE 61; RESP 12; O2SAT 98
[2020-11-14 14:44] VITALS: BP 120/44; PULSE 63; RESP 16; O2SAT 98
[2020-11-14 14:53] VITALS: BP 132/49; PULSE 68; RESP 16; O2SAT 98
== END 2020-11-14 15:21 | disposition home or self-care (01) ==
PROVIDERS: PCP Internal Medicine; Referring Provider Internal Medicine Gastroenterology; Visit Provider Internal Medicine Gastroenterology
PROC: 0DJ08ZZ Inspection of Upper Intestinal Tract, Via Natural or Artificial Opening Endoscopic (ICD-10-PCS; CPT 43235; principal; 2020-11-14 14:00)
PROC: 0DJD8ZZ Inspection of Lower Intestinal Tract, Via Natural or Artificial Opening Endoscopic (ICD-10-PCS; CPT 45378; 2020-11-14 14:00)
DX: R19.7 Diarrhea, unspecified (principal); R12 Heartburn; R11.0 Nausea; R53.83 Other fatigue; I10 Essential (primary) hypertension; E03.9 Hypothyroidism, unspecified; K31.9 Disease of stomach and duodenum, unspecified; K29.50 Unspecified chronic gastritis without bleeding; K31.7 Polyp of stomach and duodenum; D12.5 Benign neoplasm of sigmoid colon
CPT/HCPCS: 45385; 43239; J2704

== ENCOUNTER → 2020-12-01 16:23 | Outpatient (CLI) | payer OTHER, SELFPAY ==
--- NOTE | 2020-12-01 | DI.MG.S_ITS ---
BILATERAL DIGITAL SCREENING MAMMOGRAM 3D/2D WITH CAD: 12/01/2020 CLINICAL: Routine screening. Comparison is made to exams dated: 11/19/2019 mammogram, 11/16/2018 mammogram, and 11/12/2017 mammogram - [facility]. There are scattered fibroglandular elements in both breasts. Current study was also evaluated with a Computer Aided Detection (CAD) system. No significant masses, calcifications, or other findings are seen in either breast. There has been no significant interval change. IMPRESSION: NEGATIVE There is no mammographic evidence of malignancy. A 1 year screening mammogram is recommended. This exam was interpreted at Station ID: [id number]. NOTE: For mammograms, a report in lay terms will be sent to the patient. Approximately 15% of breast malignancies will not be visualized mammographically. In the management of a palpable breast mass, a negative mammogram must not discourage biopsy of a clinically suspicious lesion. Electronically Signed By: Angelica ramirez/marquise:12/04/2020 07:39:32 letter sent: Normal Exam ACR BI-RADS Category 1: Negative 3341F
== END ==
PROVIDERS: PCP Internal Medicine; Referring Provider Internal Medicine; Visit Provider Internal Medicine
DX: Z12.31 Encounter for screening mammogram for malignant neoplasm of breast (principal)
CPT/HCPCS: 77063; 77067

== ENCOUNTER → 2021-04-12 11:31 | Outpatient (CLI) | payer OTHER, SELFPAY ==
[2021-04-12 12:51] LABS: Add Manual Diff / Slide Review NO; Basophils Absolute Auto 100 /uL (0-100); Basophils Percent Auto 0.7 % (0-2); Eosinophils Absolute Auto 200 /uL (0-450); Eosinophils Percent Auto 2.4 % (2-4); Hematocrit 38.4 % (36-46); Hemoglobin 13.1 g/dL (12.0-16.0); Lymphocytes Absolute Auto 1900 /uL (1100-4500); Lymphocytes Percent Auto 24.1 % (25-40); Mean Corpuscular HGB Conc 34.2 % (30-36); Mean Corpuscular Volume 87.7 fL (80-100); Monocytes Absolute Auto 700 /uL (0-900); Monocytes Percent Auto 8.7 % (3-14); Neutrophils Absolute Auto 5100 /uL (1500-7000); Neutrophils Percent Auto 64.1 % (50-75); Platelet Count 263 X10^3/uL (150-400); Red Blood Cell Count 4.38 X10^6/uL (4.0-5.2); Red Cell Distribution Width 12.7 % (11.6-14.8)
[2021-04-12 13:11] LABS: Erythrocyte Sedimentation Rate 5 MM/HR (0-20)
[2021-04-12 13:21] LABS: Alanine Aminotransferase 37 IU/L (<35); Albumin 4.7 g/dL (3.5-5.0); Albumin Globulin Ratio 1.3 (1.0-2.8); Alkaline Phosphatase 49 U/L (38-126); Aspartate Aminotransferase 39 IU/L (14-36); BUN Creatinine Ratio 15.9 (6-22); Bilirubin Total 0.4 mg/dL (0.2-1.3); Blood Urea Nitrogen 18 mg/dL (7-17); C-Reactive Protein Quant < 0.5 mg/dL (<1.0); Carbon Dioxide 29 mmol/L (22-32); Chloride 102 mmol/L (98-107); Globulin 3.5 g/dL (1.7-4.1); Glucose 94 mg/dL (80-110); HEMOLYSIS < 15 (0-50); Potassium 4.2 mmol/L (3.4-5.1); Sodium 137 mmol/L (137-145); Total Protein 8.2 g/dL (6.3-8.2)
[2021-04-12 13:30] LABS: Free T4, Direct Thyroxine 1.29 ng/dL (0.78-2.19)
[2021-04-12 13:44] LABS: Thyroid Stimulating Hormone 0.904 uIU/mL (0.47-4.68)
== END ==
PROVIDERS: PCP Internal Medicine; Referring Provider Internal Medicine; Visit Provider Internal Medicine
DX: E03.9 Hypothyroidism, unspecified (principal); I10 Essential (primary) hypertension; R21 Rash and other nonspecific skin eruption
CPT/HCPCS: 36415; 80053; 84439; 84443; 85025; 85651; 86140

== ENCOUNTER → 2021-11-13 08:47 | Outpatient (CLI) | payer OTHER, SELFPAY ==
[2021-11-13 10:28] LABS: Alanine Aminotransferase 21 IU/L (<35); Albumin Globulin Ratio 1.4 (1.0-2.8); Alkaline Phosphatase 50 U/L (38-126); Aspartate Aminotransferase 26 IU/L (14-36); Bilirubin Total 0.3 mg/dL (0.2-1.3); Blood Urea Nitrogen 16 mg/dL (7-17); Calcium 9.2 mg/dL (8.4-10.2); Carbon Dioxide 23 mmol/L (22-32); Chloride 104 mmol/L (98-107); Cholesterol 177 mg/dL (140-199); Estimated Glomerular Filt Rate 59 mL/min (>60); Globulin 2.9 g/dL (1.7-4.1); Glucose 96 mg/dL (80-110); HDL Cholesterol 62 mg/dL (40-60); HEMOLYSIS < 15 (0-50); LDL Cholesterol Calculated 72 mg/dL (<100); Potassium 4.2 mmol/L (3.4-5.1); Sodium 137 mmol/L (137-145); Total Protein 6.9 g/dL (6.3-8.2); Triglycerides 214 mg/dL (35-150)
== END ==
PROVIDERS: PCP Internal Medicine; Referring Provider Internal Medicine; Visit Provider Internal Medicine
DX: E78.5 Hyperlipidemia, unspecified (principal); I10 Essential (primary) hypertension; N18.30 Chronic kidney disease, stage 3 unspecified
CPT/HCPCS: 36415; 80053; 80061

== ENCOUNTER → 2021-12-04 13:27 | Outpatient (CLI) | payer OTHER, SELFPAY ==
[2021-12-04 16:26] LABS: Add Manual Diff / Slide Review NO; Basophils Absolute Auto 0 /uL (0-100); Basophils Percent Auto 0.4 % (0-2); Eosinophils Absolute Auto 100 /uL (0-450); Eosinophils Percent Auto 1.3 % (2-4); Hematocrit 38.6 % (36-46); Hemoglobin 12.8 g/dL (12.0-16.0); Lymphocytes Absolute Auto 1800 /uL (1100-4500); Lymphocytes Percent Auto 25.7 % (25-40); Mean Corpuscular HGB Conc 33.1 % (30-36); Mean Corpuscular Hemoglobin 29.2 PG (26-34); Mean Corpuscular Volume 88.2 fL (80-100); Monocytes Absolute Auto 600 /uL (0-900); Monocytes Percent Auto 8.3 % (3-14); Neutrophils Absolute Auto 4500 /uL (1500-7000); Neutrophils Percent Auto 64.3 % (50-75); Platelet Count 261 X10^3/uL (150-400); Red Blood Cell Count 4.38 X10^6/uL (4.0-5.2); Red Cell Distribution Width 12.5 % (11.6-14.8)
[2021-12-04 16:40] LABS: Iron 68 ug/dL (37-170)
[2021-12-04 16:41] LABS: Albumin 4.4 g/dL (3.5-5.0); BUN Creatinine Ratio 16.7 (6-22); Blood Urea Nitrogen 18 mg/dL (7-17); Calcium 9.2 mg/dL (8.4-10.2); Carbon Dioxide 27 mmol/L (22-32); Chloride 100 mmol/L (98-107); Estimated Glomerular Filt Rate 58 mL/min (>60); Glucose 86 mg/dL (80-110); HEMOLYSIS < 15 (0-50); Magnesium 1.8 mg/dL (1.6-2.3); Phosphorous 3.6 mg/dL (2.8-4.1); Potassium 3.9 mmol/L (3.4-5.1); Sodium 138 mmol/L (137-145)
[2021-12-04 16:54] LABS: Vitamin D 25 Hydroxy (D3) 40.4 ng/mL (30.0-100.0)
[2021-12-04 20:08] LABS: Creatinine Urine Random 27.6 mg/dL; Protein (Total) Urine Random 8 mg/dL (0-12); Protein Creatinine Ratio Urine 0.28 GRAM/24H
[2021-12-06 06:36] LABS: Parathyroid Hormone Int 36 pg/mL (15-65)
== END ==
PROVIDERS: PCP Internal Medicine; Referring Provider Internal Medicine Nephrology; Visit Provider Internal Medicine Nephrology
DX: N25.81 Secondary hyperparathyroidism of renal origin (principal); N18.31 Chronic kidney disease, stage 3a; D63.1 Anemia in chronic kidney disease
CPT/HCPCS: 36415; 80069; 82306; 82570; 83540; 83735; 83970; 84156; 85025

== ENCOUNTER → 2021-12-07 17:12 | Outpatient (CLI) | payer OTHER, SELFPAY ==
--- NOTE | 2021-12-07 17:13 | DI.MG.S_ITS ---
BILATERAL DIGITAL SCREENING MAMMOGRAM 3D/2D WITH CAD: 12/07/2021 CLINICAL: Routine screening. Comparison is made to exams dated: 12/01/2020 mammogram, 11/19/2019 mammogram, and 11/16/2018 mammogram - [facility]. There are scattered areas of fibroglandular density in both breasts (category b / 25%-50% glandular tissue). Current study was also evaluated with a Computer Aided Detection (CAD) system. No significant masses, calcifications, or other findings are seen in either breast. There has been no significant interval change. IMPRESSION: NEGATIVE There is no mammographic evidence of malignancy. A 1 year screening mammogram is recommended. Based on the Tyrer Cuzick model (a risk assessment model) the patient's lifetime risk is 6.0% and her 10 year risk is 2.6%. According to the ACR, ACS, and NCCN guidelines, an annual breast MRI exam along with mammogram is recommended if the patient's lifetime risk is 20% or greater. This exam was interpreted at Station ID: [id number]. NOTE: For mammograms, a report in lay terms will be sent to the patient. Approximately 15% of breast malignancies will not be visualized mammographically. In the management of a palpable breast mass, a negative mammogram must not discourage biopsy of a clinically suspicious lesion. Electronically Signed By: Darling copeland/marquise:12/11/2021 08:47:57 letter sent: Normal Exam ACR BI-RADS Category 1: Negative 3341F
== END ==
PROVIDERS: PCP Internal Medicine; Referring Provider Internal Medicine; Visit Provider Internal Medicine
DX: Z12.31 Encounter for screening mammogram for malignant neoplasm of breast (principal)
CPT/HCPCS: 77063; 77067

== ENCOUNTER 2022-01-23 22:34 | Emergency (ER) | payer OTHER, SELFPAY ==
[2022-01-23 22:38] VITALS: BP 153/72; PULSE 69; RESP 20; TEMP 36; O2SAT 95; BMI 27.4
--- NOTE | 2022-01-23 22:42 | DI.RAD.S_ITS ---
PROCEDURE: XR CHEST 1V INDICATIONS: chest pain TECHNIQUE: One view of the chest was acquired. COMPARISON: [facility], , CHEST 1 VIEW, 03/25/2016, 14:58. FINDINGS: Surgical changes and devices: None. Lungs and pleura: Lungs are clear. No pleural effusions or pneumothorax. Mediastinum: Mediastinal contours appear normal. Heart size is normal. Bones and chest wall: No suspicious bony lesions. Overlying soft tissues appear unremarkable. IMPRESSION: 1. No acute cardiopulmonary disease. Dictated by: Favio Hastings M.D. on 01/24/2022 at 1:10 Approved by: Favio Hastings M.D. on 01/24/2022 at 1:11
[2022-01-23 23:25] LABS: Add Manual Diff / Slide Review NO; Basophils Absolute Auto 100 /uL (0-100); Basophils Percent Auto 0.7 % (0-2); Eosinophils Absolute Auto 200 /uL (0-450); Eosinophils Percent Auto 1.4 % (2-4); Hematocrit 38.1 % (36-46); Hemoglobin 13.1 g/dL (12.0-16.0); Lymphocytes Absolute Auto 2900 /uL (1100-4500); Lymphocytes Percent Auto 26.6 % (25-40); Mean Corpuscular HGB Conc 34.3 % (30-36); Mean Corpuscular Hemoglobin 29.9 PG (26-34); Mean Corpuscular Volume 87.2 fL (80-100); Monocytes Absolute Auto 1000 /uL (0-900); Monocytes Percent Auto 9.4 % (3-14); Neutrophils Absolute Auto 6700 /uL (1500-7000); Neutrophils Percent Auto 61.9 % (50-75); Platelet Count 251 X10^3/uL (150-400); Red Blood Cell Count 4.36 X10^6/uL (4.0-5.2); Red Cell Distribution Width 12.8 % (11.6-14.8); White Blood Cell Count 10.8 X10^3/uL (4.5-11.0)
[2022-01-23 23:31] LABS: INR 0.9 (0.9-1.3); Prothrombin Time 10.2 SECONDS (10.1-12.7)
[2022-01-23 23:34] LABS: PTT Partial Thromboplastin Tim 26 SECONDS (26-36)
[2022-01-23 23:35] LABS: Alanine Aminotransferase 32 IU/L (<35); Albumin 4.7 g/dL (3.5-5.0); Albumin Globulin Ratio 1.2 (1.0-2.8); Alkaline Phosphatase 73 U/L (38-126); Aspartate Aminotransferase 42 IU/L (14-36); Bilirubin Total 0.3 mg/dL (0.2-1.3); Blood Urea Nitrogen 16 mg/dL (7-17); Calcium 9.1 mg/dL (8.4-10.2); Carbon Dioxide 29 mmol/L (22-32); Chloride 98 mmol/L (98-107); Creatine Kinase 217 U/L (30-135); Estimated Glomerular Filt Rate > 60 mL/min (>60); Globulin 3.9 g/dL (1.7-4.1); Glucose 91 mg/dL (80-110); Lipase 264 U/L (23-300); Magnesium 1.9 mg/dL (1.6-2.3); Potassium 3.5 mmol/L (3.4-5.1); Sodium 137 mmol/L (137-145); Total Protein 8.6 g/dL (6.3-8.2)
[2022-01-23 23:46] LABS: Troponin I < 0.012 ng/mL (0.01-0.034)
[2022-01-23 23:50] LABS: HEMOLYSIS 43 (0-50)
[2022-01-23 23:53] LABS: CKMB % Relative Index 0.5 % (1.5-5.0)
[2022-01-24 00:42] VITALS: PULSE 66; RESP 20
[2022-01-24 00:43] VITALS: BP 173/77; PULSE 68; RESP 20; O2SAT 100
[2022-01-24 00:44] VITALS: BP 155/74; PULSE 69; RESP 21; O2SAT 100
[2022-01-24 01:00] VITALS: BP 147/68; PULSE 69; RESP 25; O2SAT 100
--- NOTE | 2022-01-24 01:00 | ED.CHESTPAIN ---
HPI - Chest Pain General Chief Complaint: Chest Pain Stated Complaint: LT. ARM PAIN/DIZZY/NAUSEA Time Seen by Provider: 01/24/22 00:59 Source: patient Mode of arrival: Ambulatory Limitations: no limitations History of Present Illness HPI narrative: Patient is a 61-year-old female history of hypertension hyperlipidemia presents today with left arm tingling and neck pain. She just getting over COVID they had COVID about 2 weeks ago. He continues to have intermittent shortness of breath that they were able to go on a pretty big walk today. She occasionally has some dizziness not sure if it is associated with shortness of breath he really isn't having any chest pain or palpitations. Concern today is goes around 830 tonight she started have some kind tingling in her left arm and neck pain. However since she is been in the emergency department she felt a sudden release of it like all the blood was coming back to her arm. She has no weakness she is not had any slurring of speech no facial droop or any other numbness tingling or weakness. Related Data Previous Rx's Medication Instructions Recorded trazodone 50 mg tablet 50 mg PO BEDTIME PRN insomnia #90 03/05/21 tabs valacyclovir 500 mg tablet 1,000 mg PO Q12H PRN herpes 03/05/21 outbreak #20 tabs fluocinolone 0.025 % topical 1 applic topical BID #15 grams 04/12/21 ointment atorvastatin 10 mg tablet 10 mg PO BEDTIME #90 tabs 11/12/21 estradiol 0.5 mg tablet 0.5 mg PO DAILY #90 tabs 11/12/21 levothyroxine 75 mcg tablet 75 mcg PO QDAY #90 tabs 11/12/21 (Synthroid) hydrochlorothiazide 12.5 mg tablet 12.5 mg PO DAILY #90 tabs 11/15/21 losartan 100 mg tablet 100 mg PO DAILY #90 tabs 11/15/21 losartan 100 mg tablet 100 mg PO DAILY #30 tabs 12/21/21 Allergies Allergy/AdvReac Type Severity Reaction Status Date / Time codeine [CODEINE] AdvReac Intermediate NAUSEA Verified 11/15/21 15:55 tetanus and diphtheria AdvReac Intermediate REDNESS, Verified 11/15/21 15:55 toxoids SWELLING [TETANUS AND DIPHTHERIA TOXOIDS] metoprolol AdvReac bradycardia/weakness Verified 11/15/21 15:[address] Pierson Review of Systems Review of Systems Narrative: GENERAL: Denies chills, fatigue, malaise, fever, sweats, travel HEENT: Denies sinus pain, ear pain, sore throat, difficulty swallowing, neck pain RESPIRATORY: Denies dyspnea, cough, wheezing, hemoptysis, sputum. CARDIOVASCULAR: See HPI GASTROINTESTINAL: Denies nausea, vomiting, abdominal pain, diarrhea, constipation, melena. : Denies dysuria, frequency, incontinence, hematuria, urinary retention, flank pain. MUSCULOSKELETAL: Denies weakness, joint pain, or bony pain SKIN: No rash, no erythema, no pruritus NEUROLOGIC: See HPI PSYCHIATRIC: No concerning psychosocial issues. 12 point review of systems is negative except for those stated above and HPI Patient History Medical History Asthma Benign cystic nephroma Essential hypertension Herpes History of pacemaker Hyperlipidemia Hypothyroidism Incisional hernia Macromastia Menopause Shoulder pain Sinusitis Solitary left kidney Surgical History History of delivery History of nephrectomy (10/30/16) History of umbilical hernia repair Hx of section (1991) Hx of hysterectomy (2007) Hx of tonsillectomy Family History Brother Atrial fibrillation, unspecified type Brother Atrial fibrillation, unspecified type Father Atrial fibrillation, unspecified type History of pacemaker Brother No problems noted. Social History (Updated 06/06/17 @ 09:47 by Alesia Anne RN) household members: spouse seatbelt use: always helmet use: Yes Smoking Status: Never smoker second hand exposure: No alcohol intake: current substance use type: does not use Smoking Status: Never smoker alcohol intake frequency: a few times a week Substance Use Type: does not use Exam Initial Vital Signs Initial Vital Signs: Vital Signs Temperature 96.8 F L 01/23/22 22:38 Pulse Rate 69 01/23/22 22:38 Respiratory Rate 20 01/23/22 22:38 Blood Pressure 153/72 H 01/23/22 22:38 Pulse Oximetry 95 01/23/22 22:38 Oxygen Delivery Method 01/23/22 22:38 GENERAL: Alert pleasant 61-year-old female and in [no acute] distress. HEENT: Head atraumatic,EOMI, pupils reactive, face symmetric, [moist] mucous membranes CARDIOVASCULAR: Regular rate and rhythm without murmurs, rubs or gallops. RESPIRATORY: Breath sounds equal bilaterally, no wheezes rales or rhonchi. ABDOMEN: Soft, nontender. Normoactive bowel sounds all 4 quadrants. No guarding or rebound. EXTREMITIES: Normal range of motion, no clubbing or edema. Neurovascularly intact NEUROLOGICAL: Alert and oriented x4.Normal gait and speech. Cranial nerves II through XII grossly intact. Nursing Assoc strength equal bilaterally no ataxia SKIN: Warm, dry, no laceration, no petechiae, no rashes or lesions. Scores HEART Score Heart Score history: Slightly Suspicious Heart Score EKG: Normal Heart Score Age: 45-64 years old Heart Score risk factors: 1-2 risk factors Heart Score troponin: < or = to normal limit Heart Score Total: 2 Course Orders Ordered: Discontinued Medications Aspirin (Aspirin 81 Mg Chew Tab) 324 mg PO NOW ONE Stop: 01/23/22 22:43 Last Admin: 01/24/22 01:39 Dose: Not Given Documented By: KATELIN Vital Signs Vital signs: Vital Signs - 8 hr 01/23/22 22:38 Temperature 96.8 F L Pulse Rate 69 Respiratory Rate 20 Blood Pressure 153/72 H Pulse Oximetry 95 Oxygen Delivery Method Room Air MDM - Chest Pain Lab Data Result diagrams: 01/23/22 22:55 01/23/22 22:55 Labs: Lab Results 01/23/22 01/23/22 01/23/22 Range/Units 22:55 22:55 22:55 WBC 10.8 (4.5-11.0) X10^3/uL RBC 4.36 (4.0-5.2) X10^6/uL Hgb 13.1 (12.0-16.0) g/dL Hct 38.1 (36-46) % MCV 87.2 (80-100) fL MCH 29.9 (26-34) PG MCHC 34.3 (30-36) % RDW 12.8 (11.6-14.8) % Plt Count 251 (150-400) X10^3/uL Neut % (Auto) 61.9 (50-75) % Lymph % (Auto) 26.6 (25-40) % [place] % (Auto) 9.4 (3-14) % Eos % (Auto) 1.4 L (2-4) % Baso % (Auto) 0.7 (0-2) % Neut # (Auto) 6700 (5498-2802) /uL Lymph # (Auto) 2900 (5439-9411) /uL [place] # (Auto) 1000 H (0-900) /uL Eos # (Auto) 200 (0-450) /uL Baso # (Auto) 100 (0-100) /uL PT 10.2 (10.1-12.7) SECONDS INR 0.9 (0.9-1.3) APTT 26 (26-36) SECONDS Sodium 137 (137-145) mmol/L Potassium 3.5 (3.4-5.1) mmol/L Chloride 98 (98-107) mmol/L Carbon Dioxide 29 (22-32) mmol/L BUN 16 (7-17) mg/dL Creatinine 1.00 (0.52-1.04) mg/dL Estimated GFR > 60 (>60) mL/min BUN/Creatinine Ratio 16.0 (6-22) Glucose 91 (80-110) mg/dL Calcium 9.1 (8.4-10.2) mg/dL Magnesium 1.9 (1.6-2.3) mg/dL Total Bilirubin 0.3 (0.2-1.3) mg/dL AST 42 H (14-36) IU/L ALT 32 (<35) IU/L Alkaline Phosphatase 73 (38-126) U/L Total Creatine Kinase 217 H (30-135) U/L CK-MB (CK-2) 1.00 (<2.37) ng/mL CK-MB (CK-2) Rel Index 0.5 L (1.5-5.0) % Troponin I < 0.012 (0.01-0.034) ng/mL Total Protein 8.6 H (6.3-8.2) g/dL Albumin 4.7 (3.5-5.0) g/dL Globulin 3.9 (1.7-4.1) g/dL Albumin/Globulin Ratio 1.2 (1.0-2.8) Lipase 264 (23-300) U/L Imaging Data Chest x-ray: Radiologist's Impression: [facility] [address] [place] [address] XRay Report Signed Patient: Yun Diaz MR#: [id number] : 1960 Acct:[id number] Age/Sex: 61 / F Date of Service: 01/23/22 Loc: ED Accession Number: [id number] ?? Procedure: XR chest 1V Ordering Provider: Rashmi Tellez D.O. PROCEDURE:? XR CHEST 1V ? INDICATIONS:? chest pain ? TECHNIQUE:? One view of the chest was acquired.? ? COMPARISON:? [facility], , CHEST 1 VIEW, 03/25/2016, 14:58. ? FINDINGS:? ? Surgical changes and devices:? None.? ? Lungs and pleura:? Lungs are clear.? No pleural effusions or pneumothorax.? ? Mediastinum:? Mediastinal contours appear normal.? Heart size is normal.? ? Bones and chest wall:? No suspicious bony lesions.? Overlying soft tissues appear unremarkable.? ? IMPRESSION:? ? 1.? No acute cardiopulmonary disease. ? ? ? Dictated by: Favio Hastings M.D. on 01/24/2022 at 1:10 ? ? ECG Data Interpretation: Normal sinus rhythm rate 65 CO interval 174 QRS [address] changes similar to previous EKG in 2018 no sign of ischemia. MDM Narrative Medical decision making narrative: The patient really isn't having cardiac symptoms. No chest pain. Dizziness and shortness of breath but not consistent. At this time I do not think PE related to COVID. She is satting 100% and she is not tachycardic here and not consistently short of breath. She was able to go on rigorous walk earlier. She is overall feeling better and felt a sudden release in her neck and her arm. The numbness related to arm and neck seems to be musculoskeletal. Especially with a sudden release. At this time I see no need for any further workup or intervention. Discharge Plan Departure Patient Disposition: Home Clinical Impression: Paresthesia and pain of left extremity Instructions: DI for Atypical Chest Pain, DI for Peripheral Neuropathy Activity Restrictions/Additional Instructions: *You have been diagnosed with paresthesias atypical chest pain *What to do: At this time I think you had a musculoskeletal issue in regards to her left arm. Her other symptoms may be related to COVID. Please take it easy. *Continue to take medications as directed *Follow up with your primary care provider in 2-3 days or call [phone] *Return to ER if you should have chest pain extremity weakness confusion difficulty speaking or any new, worsening or concerning symptoms Prescriptions: No Action trazodone 50 mg tablet 50 mg PO BEDTIME PRN (Reason: insomnia) Qty: 90 3RF valacyclovir 500 mg tablet 1,000 mg PO Q12H PRN (Reason: herpes outbreak) Qty: 20 5RF estradiol 0.5 mg tablet 0.5 mg PO DAILY Qty: 90 3RF levothyroxine [Synthroid] 75 mcg tablet 75 mcg PO QDAY Qty: 90 1RF atorvastatin 10 mg tablet 10 mg PO BEDTIME Qty: 90 1RF Rx Instructions: Take one tablet at bedtime for high cholesterol losartan 100 mg tablet 100 mg PO DAILY Qty: 30 0RF Rx Instructions: Short fill until bigger script can be obtained thru [facility] losartan 100 mg tablet 100 mg PO DAILY Qty: 90 3RF hydrochlorothiazide 12.5 mg tablet 12.5 mg PO DAILY Qty: 90 3RF fluocinolone 0.025 % ointment 1 applic topical BID Qty: 15 1RF Referrals: Fransisco Galicia MD [Primary Care Provider] - Visit Report Forms: Patient Portal/API
[2022-01-24 01:30] VITALS: BP 127/71; PULSE 73; RESP 28; O2SAT 99
== END 2022-01-24 01:42 | disposition home or self-care (01) ==
PROVIDERS: Emergency Provider Emergency Medicine; PCP Internal Medicine
DX: R20.2 Paresthesia of skin (principal); R07.89 Other chest pain; R06.02 Shortness of breath; M54.2 Cervicalgia; M79.602 Pain in left arm
CPT/HCPCS: 36415; 71045; 80053; 82550; 82553; 83690; 83735; 84484; 85025; 85610; 85730; 93010; 99283; 99284

== ENCOUNTER → 2022-08-01 16:29 | Outpatient (CLI) | payer OTHER, SELFPAY ==
--- NOTE | 2022-08-01 16:32 | DI.RAD.S_ITS ---
PROCEDURE: XR FOOT LT MIN 3V INDICATIONS: possible gout TECHNIQUE: 3 views of the foot were acquired. COMPARISON: None. FINDINGS: Bones: No fractures or dislocations. No suspicious bony lesions. Calcaneal enthesophytes. Soft tissues: No tibiotalar joint effusion. Achilles tendon appears normal. IMPRESSION: No evidence of gout. Dictated by: Silvio Gaxiola M.D. on 08/01/2022 at 17:05 Approved by: Silvio Gaxiola M.D. on 08/01/2022 at 17:05
[2022-08-01 17:21] LABS: Hematocrit 37.6 % (36-46); Hemoglobin 12.9 g/dL (12.0-16.0); Mean Corpuscular HGB Conc 34.3 % (30-36); Mean Corpuscular Hemoglobin 29.7 PG (26-34); Mean Corpuscular Volume 86.7 fL (80-100); Platelet Count 264 X10^3/uL (150-400); Red Blood Cell Count 4.34 X10^6/uL (4.0-5.2); Red Cell Distribution Width 12.7 % (11.6-14.8); White Blood Cell Count 9.9 X10^3/uL (4.5-11.0)
[2022-08-01 17:41] LABS: HEMOLYSIS < 15 (0-50)
[2022-08-01 17:43] LABS: Alanine Aminotransferase 29 IU/L (<35); Albumin 4.4 g/dL (3.5-5.0); Albumin Globulin Ratio 1.5 (1.0-2.8); Alkaline Phosphatase 49 U/L (38-126); Aspartate Aminotransferase 32 IU/L (14-36); BUN Creatinine Ratio 15.2 (6-22); Bilirubin Total 0.4 mg/dL (0.2-1.3); Blood Urea Nitrogen 16 mg/dL (7-17); C-Reactive Protein Quant < 0.5 mg/dL (<1.0); Calcium 9.3 mg/dL (8.4-10.2); Carbon Dioxide 27 mmol/L (22-32); Chloride 98 mmol/L (98-107); Estimated Glomerular Filt Rate > 60 mL/min (>60); Glucose 97 mg/dL (80-110); Potassium 3.7 mmol/L (3.4-5.1); Sodium 135 mmol/L (137-145); Total Protein 7.4 g/dL (6.3-8.2); Uric Acid 5.8 mg/dL (2.5-6.2)
[2022-08-01 17:52] LABS: Rheumatoid Factor < 8.6 IU/mL (<12.0)
[2022-08-01 18:29] LABS: Vitamin B12 Reflex MMA if <400 372 pg/mL (239-931)
[2022-08-01 20:36] LABS: Erythrocyte Sedimentation Rate 9 MM/HR (0-20)
[2022-08-06 09:41] LABS: Methylmalonic Acid,Serum 162 nmol/L (0-378)
[2022-08-06 19:40] LABS: ANA Screen, IFA Positive (.)
== END ==
PROVIDERS: PCP Internal Medicine; Referring Provider Nurse Practitioner Family; Visit Provider Nurse Practitioner Family
DX: M25.50 Pain in unspecified joint (principal); M79.675 Pain in left toe(s); M10.9 Gout, unspecified; I12.9 Hypertensive chronic kidney disease with stage 1 through stage 4 chronic kidney disease, or unspecified chronic kidney disease; N18.30 Chronic kidney disease, stage 3 unspecified; Q60.0 Renal agenesis, unilateral
CPT/HCPCS: 36415; 73630; 80053; 82607; 83921; 84550; 85027; 85651; 86038; 86140; 86430

== ENCOUNTER → 2023-01-07 08:33 | Outpatient (CLI) | payer OTHER, SELFPAY ==
--- NOTE | 2023-01-07 | DI.MG.S_ITS ---
BILATERAL DIGITAL SCREENING MAMMOGRAM 3D/2D WITH CAD: 01/07/2023 CLINICAL: Routine screening. Comparison is made to exams dated: 12/07/2021 mammogram, 12/01/2020 mammogram, and 11/19/2019 mammogram - [facility]. There are scattered areas of fibroglandular density in both breasts (category b / 25%-50% glandular tissue). Current study was also evaluated with a Computer Aided Detection (CAD) system. No significant masses, calcifications, or other findings are seen in either breast. There has been no significant interval change. IMPRESSION: NEGATIVE There is no mammographic evidence of malignancy. A 1 year screening mammogram is recommended. Based on the Tyrer Cuzick model (a risk assessment model) the patient's lifetime risk is 7.4% and her 10 year risk is 3.3%. According to the ACR, ACS, and NCCN guidelines, an annual breast MRI exam along with mammogram is recommended if the patient's lifetime risk is 20% or greater. This exam was interpreted at Station ID: [id number]. NOTE: For mammograms, a report in lay terms will be sent to the patient. Approximately 15% of breast malignancies will not be visualized mammographically. In the management of a palpable breast mass, a negative mammogram must not discourage biopsy of a clinically suspicious lesion. Electronically Signed By: Darling copeland/marquise:01/07/2023 13:57:55 letter sent: Normal Exam ACR BI-RADS Category 1: Negative [id number]
== END ==
PROVIDERS: PCP Internal Medicine; Referring Provider Internal Medicine; Visit Provider Internal Medicine
DX: Z12.31 Encounter for screening mammogram for malignant neoplasm of breast (principal)
CPT/HCPCS: 77063; 77067

== ENCOUNTER → 2023-01-31 10:50 | Outpatient (CLI) | payer OTHER, SELFPAY ==
[2023-01-31 11:47] LABS: Hematocrit 36.1 % (36-46); Hemoglobin 12.5 g/dL (12.0-16.0); Mean Corpuscular HGB Conc 34.5 % (30-36); Mean Corpuscular Hemoglobin 30.6 PG (26-34); Mean Corpuscular Volume 88.8 fL (80-100); Platelet Count 232 X10^3/uL (150-400); Red Blood Cell Count 4.07 X10^6/uL (4.0-5.2); White Blood Cell Count 7.2 X10^3/uL (4.5-11.0)
[2023-01-31 12:11] LABS: Albumin 4.2 g/dL (3.5-5.0); BUN Creatinine Ratio 20.2 (6-22); Blood Urea Nitrogen 20 mg/dL (7-17); Carbon Dioxide 28 mmol/L (22-32); Chloride 101 mmol/L (98-107); Estimated Glomerular Filt Rate > 60 mL/min (>60); Glucose 96 mg/dL (80-110); HEMOLYSIS < 15 (0-50); Magnesium 1.7 mg/dL (1.6-2.3); Phosphorous 3.6 mg/dL (2.8-4.1); Sodium 135 mmol/L (137-145)
[2023-01-31 12:12] LABS: Iron 115 ug/dL (37-170)
[2023-01-31 12:25] LABS: Vitamin D 25 Hydroxy (D3) 39.5 ng/mL (30.0-100.0)
[2023-01-31 14:21] LABS: Creatinine Urine Random 44.3 mg/dL; Protein (Total) Urine Random 6 mg/dL (0-12); Protein Creatinine Ratio Urine 0.13 GRAM/24H
[2023-02-04 01:06] LABS: Parathyroid Hormone Int 28 pg/mL (15-65)
== END ==
PROVIDERS: PCP Internal Medicine; Referring Provider Internal Medicine Nephrology; Visit Provider Internal Medicine Nephrology
DX: N18.31 Chronic kidney disease, stage 3a (principal); D63.1 Anemia in chronic kidney disease; N25.81 Secondary hyperparathyroidism of renal origin
CPT/HCPCS: 36415; 80069; 82306; 82570; 83540; 83735; 83970; 84156; 85027

== ENCOUNTER 2023-02-03 18:33 | Emergency (ER) | payer OTHER, SELFPAY ==
[2023-02-03 18:39] VITALS: BP 171/95; PULSE 67; RESP 16; TEMP 36.6; O2SAT 99; BMI 28.1
--- NOTE | 2023-02-03 18:44 | DI.RAD.S_ITS ---
PROCEDURE: XR TOE RT MIN 2V INDICATIONS: trauma w/ laceration TECHNIQUE: 3 views of the 1st toe(s) acquired. COMPARISON: None. FINDINGS: Bones: No fractures or dislocations. No suspicious bony lesions. Soft tissues: No suspicious soft tissue densities. IMPRESSION: No acute bony abnormality. Dictated by: Silvio Gaxiola M.D. on 02/03/2023 at 19:02 Approved by: Sivlio Gaxiola M.D. on 02/03/2023 at 19:03
[2023-02-03 19:42] VITALS: PULSE 65; O2SAT 98
[2023-02-03 19:43] VITALS: PULSE 65
[2023-02-03 19:46] VITALS: BP 160/74; PULSE 64; O2SAT 98
--- NOTE | 2023-02-03 19:51 | ED.LOWEXIN ---
HPI - Extremity Injury (Lower) General Chief Complaint: Extremity Injury, Lower Stated Complaint: toe broken Time Seen by Provider: 02/03/23 19:46 Source: patient Mode of arrival: Wheelchair History of Present Illness HPI Narrative: Patient is a 62-year-old female who is here for evaluation of an injury to her right great toe. She states that she was walking and got her toe caught underneath her and bent it. She thought that she heard a crack. She did cut the top of her toe. She thought maybe she is broken her toe. Related Data Previous Rx's Medication Instructions Recorded valacyclovir 500 mg tablet 1,000 mg (2 x 500 mg) PO Q12H PRN 03/05/21 herpes outbreak #20 tabs fluocinolone 0.025 % topical 1 applic topical BID #15 grams 04/12/21 ointment trazodone 50 mg tablet 50 mg PO BEDTIME PRN insomnia #90 04/15/22 tabs atorvastatin 10 mg tablet 10 mg PO BEDTIME #90 tabs 05/01/22 duloxetine 30 mg capsule,delayed 30 mg PO DAILY #90 caps 08/26/22 release levothyroxine 75 mcg tablet 75 mcg PO QDAY #90 tabs 10/30/22 (Synthroid) hydrochlorothiazide 12.5 mg tablet 12.5 mg PO DAILY #90 tabs 12/05/22 estradiol 0.5 mg tablet 0.5 mg PO DAILY #90 tabs 12/06/22 losartan 100 mg tablet 100 mg PO DAILY #90 tabs 12/12/22 Allergies Allergy/AdvReac Type Severity Reaction Status Date / Time codeine [CODEINE] AdvReac Intermediate NAUSEA Verified 08/26/22 15:34 tetanus and diphtheria AdvReac Intermediate REDNESS, Verified 08/26/22 15:34 toxoids SWELLING [TETANUS AND DIPHTHERIA TOXOIDS] metoprolol AdvReac bradycardia/weakness Verified 08/26/22 15:[address] Pierson Review of Systems Constitutional Constitutional: Reports system reviewed and no additional complaints, except as documented Musculoskeletal Musculoskeletal: Reports system reviewed and no additional complaints, except as documented Integumentary/Breasts Skin/Breast: Reports system reviewed and no additional complaints, except as documented Neurologic Neurologic: Reports system reviewed and no additional complaints, except as documented Hematologic/Lymphatic On Anticoagulants: No Patient History Medical History Sinusitis Shoulder pain Asthma Herpes Menopause Macromastia Incisional hernia Solitary left kidney Hypothyroidism Hyperlipidemia Essential hypertension Benign cystic nephroma History of pacemaker Surgical History History of delivery History of nephrectomy (10/30/16) History of umbilical hernia repair Hx of section (1991) Hx of hysterectomy (2007) Hx of tonsillectomy Family History Brother Atrial fibrillation, unspecified type Brother Atrial fibrillation, unspecified type Father Atrial fibrillation, unspecified type History of pacemaker Brother No problems noted. Social History household members: spouse seatbelt use: always helmet use: Yes Smoking Status: Never smoker second hand exposure: No alcohol intake: current substance use type: does not use Smoking Status: Never smoker alcohol intake frequency: a few times a week Substance Use Type: does not use Exam Initial Vital Signs Initial Vital Signs: Vital Signs Temperature 97.8 F 02/03/23 18:39 Pulse Rate 67 02/03/23 18:39 Respiratory Rate 16 02/03/23 18:39 Blood Pressure 171/95 H 02/03/23 18:39 Pulse Oximetry 99 02/03/23 18:39 Oxygen Delivery Method Room Air 02/03/23 18:39 Skin Other: 2 cm laceration over the IP joint of the right great toe. Neuro Sensory Exam: no sensory deficits noted Extrem Other: Patient is able to extend the toe against resistance at the IP joint. Procedures Laceration Repair Laceration 1: Site: other (Great toe) Side (If applicable): right Size (cm): 2 Description: linear Depth: simple, single layer Local Anesthetic: lidocaine 1% Amount of anesthesia used (mL): 4 Pre-repair: wound explored and deep structures intact Skin layer closed with: nylon Skin layer suture size: 4-0 Number of sutures: 5 Technique: simple, interrupted Course Orders Ordered: ED Orders 02/03/23 18:44 XR toe RT min 2V Stat Discontinued Medications Bacitracin (Bacitracin Oint 0.9 Gm Pckt) 1 applic TOP NOW ONE Stop: 02/03/23 20:23 Last Admin: 02/03/23 20:31 Dose: 1 applic Documented By: RAIN Vital Signs Vital signs: Vital Signs - 8 hr 02/03/23 18:39 02/03/23 19:42 02/03/23 19:43 Temperature 97.8 F Pulse Rate 67 65 Pulse Rate [Right Dorsalis Pedis] 65 Respiratory Rate 16 Blood Pressure 171/95 H Pulse Oximetry 99 98 Oxygen Delivery Method Room Air 02/03/23 19:46 02/03/23 19:46 02/03/23 20:00 Temperature Pulse Rate 64 Pulse Rate [Right Dorsalis Pedis] Respiratory Rate Blood Pressure 160/74 H 149/100 H Pulse Oximetry 98 Oxygen Delivery Method 02/03/23 20:00 02/03/23 20:30 02/03/23 20:40 Temperature Pulse Rate 63 58 L Pulse Rate [Right Dorsalis Pedis] Respiratory Rate Blood Pressure Pulse Oximetry 99 99 Oxygen Delivery Method Room Air MDM - Extremity Injury (Lower) Imaging Data Extremity x-ray #1: Radiologist's Impression: PROCEDURE: XR TOE RT MIN 2V INDICATIONS: trauma w/ laceration TECHNIQUE: 3 views of the 1st toe(s) acquired. COMPARISON: None. FINDINGS: Bones: No fractures or dislocations. No suspicious bony lesions. Soft tissues: No suspicious soft tissue densities. IMPRESSION: No acute bony abnormality. MDM Narrative Medical decision making narrative: No fractures noted on the x-ray. On my exam the laceration does seem to be superficial. There is a very small concerned that maybe she got the extensor tendon of the toe however she does seem to be able to flex the toe against resistance and also straighten the toe against resistance. On deep examination after anesthesia of the area it does seem to be a very superficial wound and does not appear to involve the tendon. It was closed as described above. She was placed in an orthopedic shoe just for her comfort. She was advised that after healing of the initial injury if she continues to get discomfort or any deformity that she will need to follow-up with her primary doctor and also a advice nurse. She has a relationship with a local advice nurse already and advised that she call them for follow-up. She was given return precautions. She expressed understanding and agreement. Discharge Plan Departure Patient Disposition: Home Clinical Impression: Laceration of toe of right foot Instructions: DI for Laceration Repair Activity Restrictions/Additional Instructions: The stitches can be removed in 7-10 days. You can put topical antibiotic ointment over the area. You can shower like normal but do not soak your foot in anything. Recommend you contact your primary doctor for a follow-up. Prescriptions: No Action valacyclovir 500 mg tablet 1,000 mg PO Q12H PRN (Reason: herpes outbreak) Qty: 20 5RF trazodone 50 mg tablet 50 mg PO BEDTIME PRN (Reason: insomnia) Qty: 90 3RF atorvastatin 10 mg tablet 10 mg PO BEDTIME Qty: 90 1RF Hold Instructions: joint pain Rx Instructions: Take one tablet at bedtime for high cholesterol levothyroxine [Synthroid] 75 mcg tablet 75 mcg PO QDAY Qty: 90 1RF hydrochlorothiazide 12.5 mg tablet 12.5 mg PO DAILY Qty: 90 3RF estradiol 0.5 mg tablet 0.5 mg PO DAILY Qty: 90 3RF losartan 100 mg tablet 100 mg PO DAILY Qty: 90 3RF fluocinolone 0.025 % ointment 1 applic topical BID Qty: 15 1RF duloxetine 30 mg capsule,delayed release(DR/EC) 30 mg PO DAILY Qty: 90 3RF Referrals: Mary Beth Mccall DPM [Physician] - Fransisco Galicia MD [Primary Care Provider] - Stand Alone Forms: Patient Portal/API
[2023-02-03 20:00] VITALS: BP 149/100; PULSE 63; O2SAT 99
[2023-02-03 20:30] VITALS: PULSE 58; O2SAT 99
[2023-02-03] MEDS: BACITRACIN OINT 0.9 GM PCKT 1 APPLIC TOP (20:31)
== END 2023-02-03 20:43 | disposition home or self-care (01) ==
PROVIDERS: Emergency Provider Emergency Medicine; PCP Internal Medicine
DX: S91.111A Laceration without foreign body of right great toe without damage to nail, initial encounter (principal); X58.XXXA Exposure to other specified factors, initial encounter
CPT/HCPCS: 12001; 73660; 99282; 99283

== ENCOUNTER → 2023-10-06 08:27 | Outpatient (CLI) | payer OTHER, SELFPAY ==
[2023-10-06 10:11] LABS: Cholesterol 248 mg/dL (140-199); HDL Cholesterol 72 mg/dL (40-60); LDL Cholesterol Calculated 130 mg/dL (<100); Triglycerides 231 mg/dL (35-150)
[2023-10-06 10:19] LABS: Hemoglobin A1C% w Est Avg Glu 5.4 % (4.0-6.0)
[2023-10-06 10:53] LABS: TSH w/ Reflex to FT4 2.19 uIU/mL (0.47-4.68)
== END ==
PROVIDERS: PCP Family Medicine; Referring Provider Family Medicine; Visit Provider Family Medicine
DX: I12.9 Hypertensive chronic kidney disease with stage 1 through stage 4 chronic kidney disease, or unspecified chronic kidney disease (principal); E78.5 Hyperlipidemia, unspecified; E03.9 Hypothyroidism, unspecified; Z68.29 Body mass index [BMI] 29.0-29.9, adult; N18.30 Chronic kidney disease, stage 3 unspecified
CPT/HCPCS: 36415; 80061; 83036; 84443

== ENCOUNTER → 2023-10-15 15:03 | Outpatient (CLI) | payer BC, SELFPAY | PROVIDERS: PCP Family Medicine; Referring Provider Family Medicine; Visit Provider Family Medicine | DX: R00.2 Palpitations (principal); Z82.49 Family history of ischemic heart disease and other diseases of the circulatory system; E03.9 Hypothyroidism, unspecified; R53.83 Other fatigue; R42 Dizziness and giddiness; I10 Essential (primary) hypertension | CPT/HCPCS: 93246 ==

== ENCOUNTER → 2024-01-13 11:26 | Outpatient (CLI) | payer BC, SELFPAY ==
--- NOTE | 2024-01-13 11:28 | DI.MG.S_ITS ---
BILATERAL DIGITAL SCREENING MAMMOGRAM 3D/2D WITH CAD: 01/13/2024 CLINICAL: Routine screening. Comparison is made to exams dated: 01/07/2023 mammogram, 12/07/2021 mammogram, and 12/01/2020 mammogram - [facility]. There are scattered areas of fibroglandular density (category b / 25%-50% glandular tissue). Current study was also evaluated with a Computer Aided Detection (CAD) system. No significant masses, calcifications, or other findings are seen in either breast. There has been no significant interval change. IMPRESSION: NEGATIVE There is no mammographic evidence of malignancy. A 1 year screening mammogram is recommended. Based on the Tyrer Cuzick model (a risk assessment model) the patient's lifetime risk is 7.2% and her 10 year risk is 3.3%. According to the ACR, ACS, and NCCN guidelines, an annual breast MRI exam along with mammogram is recommended if the patient's lifetime risk is 20% or greater. This exam was interpreted at Station ID: [id number]. NOTE: For mammograms, a report in lay terms will be sent to the patient. Approximately 15% of breast malignancies will not be visualized mammographically. In the management of a palpable breast mass, a negative mammogram must not discourage biopsy of a clinically suspicious lesion. Electronically Signed By: Ariel donohue/marquise:01/13/2024 13:02:41 letter sent: Normal Exam ACR BI-RADS Category 1: Negative
== END ==
PROVIDERS: PCP Family Medicine; Referring Provider Family Medicine; Visit Provider Family Medicine
DX: Z12.31 Encounter for screening mammogram for malignant neoplasm of breast (principal)
CPT/HCPCS: 77063; 77067

== ENCOUNTER → 2024-03-08 10:56 | Outpatient (CLI) | payer BC, SELFPAY | PROVIDERS: PCP Family Medicine; Visit Provider Physician Assistant | DX: R07.0 Pain in throat (principal) | CPT/HCPCS: 87070 ==

== ENCOUNTER → 2024-05-17 14:37 | Outpatient (CLI) | payer BC, SELFPAY ==
--- NOTE | 2024-05-17 14:42 | DI.RAD.S_ITS ---
PROCEDURE: XR DEXA AXIAL SKELETON INDICATIONS: Osteoporosis screening COMPARISON: [facility], CR, XR DEXA AXIAL SKELETON, 11/12/2017, 13:01. FINDINGS: Lumbar Spine: Bone mineral density 1.376 g/cm2, T score 3.3. There is interval 6.1% decrease in total lumbar spine bone mineral density. Left Femoral Neck: Bone mineral density 0.911 g/cm2, T score 0.6. There is interval 2.5% increase in left femoral neck bone mineral density. Left Hip: Bone mineral density 1.143 g/cm2, T score 1.7. There is interval 0.1% decrease in total left hip bone mineral density. Fracture Risk Calculation (when applicable): 10-year fracture risk of a major osteoporotic fracture 6 percent and of a hip fracture 0.1 percent. (T score greater or equal to -1.0 to: NORMAL) (T score from -1.1 to -2.4: OSTEOPENIA) (T score less than or equal to -2.5: OSTEOPOROSIS) IMPRESSION: Normal bone mineral density. Follow-up guidelines as follows: Osteoporosis: Consider a repeat DEXA and Vertebral Fracture Assessment (VFA) exam in 2 years or sooner if medically necessary, to reassess this patient's status. Osteopenia: Consider a repeat DEXA in 2-3 years to reassess this patient's status, or if there is a new clinical indication. Normal: Consider a repeat DEXA in 5 years or sooner, or if there is a new clinical indication. All treatment decisions require clinical judgment and consideration of individual patient factors, including patient preferences, comorbidities, previous drug use, risk factors not captured in the FRAX model (e.g., frailty, falls, vitamin D deficiency, increased bone turnover, interval significant decline in bone density ) and possible under- or over-estimation of fracture risk by FRAX. In addition, the NOF Guide recommends that FDA-approved medical therapies be considered in postmenopausal women and men age >= 50 years with a: * Hip or vertebral (clinical or morphometric) fracture * T-score of <=-2.5 at the spine or hip * Ten-year fracture probability by FRAX of >= 3% for hip fracture or >=20% for major osteoporotic fracture. Dictated by: Juwan Martinez M.D. on 05/17/2024 at 16:51 Approved by: Juwan Martinez M.D. on 05/17/2024 at 16:52
[2024-05-17 17:07] LABS: TSH w/ Reflex to FT4 1.81 uIU/mL (0.47-4.68)
--- NOTE | 2024-05-18 07:57 | DI.NM.S_ITS ---
DATE OF SERVICE: 05/17/2024 EXERCISE STRESS TEST INDICATION: Coronary calcium, fatigue. CARDIAC STRESS TEST: The patient underwent exercise stress test under the supervision of an attending staff. She walked on Vern protocol for 6 minutes and 49 seconds, achieved maximum heart rate of 144 which was 92% of target heart rate. Normal blood pressure response. Resting blood pressure 148/85 and peak blood pressure 189/71. 7 METs of workload. JARED -7%. Baseline rhythm sinus with mild sinus bradycardia and repolarization changes. At the end of exercise and in the immediate recovery, the patient has up to 1 to 1.[address] depression in inferior leads and leads V4 to V6, which returned to baseline in about 5 minutes into the recovery. No chest pain or anginal symptoms. No significant arrhythmias. CONCLUSION: This is an abnormal exercise stress test with positive inducible ischemic changes as stated above. Overall fair exercise tolerance. Normal hemodynamic response. No anginal symptoms. Correlate clinically. Consider repeating exercise stress test with imaging modality for further CAD diagnosis and risk stratification. Yun Diaz - TALYA/carlo/MORGAN doc#: [id number]/job#: [id number] dd: 05/17/2024 17:30:00 dt: 05/17/2024 17:38:00 DICTATING MD/COPIES TO: Alda Lake MD COPIES MNE: GLORIA;
== END ==
PROVIDERS: PCP Family Medicine; Referring Provider Family Medicine; Visit Provider Family Medicine
DX: I12.9 Hypertensive chronic kidney disease with stage 1 through stage 4 chronic kidney disease, or unspecified chronic kidney disease (principal); N18.30 Chronic kidney disease, stage 3 unspecified; R94.39 Abnormal result of other cardiovascular function study; R93.1 Abnormal findings on diagnostic imaging of heart and coronary circulation; R06.02 Shortness of breath; M85.89 Other specified disorders of bone density and structure, multiple sites; Z78.0 Asymptomatic menopausal state; E78.5 Hyperlipidemia, unspecified; E03.9 Hypothyroidism, unspecified; R53.83 Other fatigue
CPT/HCPCS: 36415; 77080; 84443; 93017

== ENCOUNTER → 2024-06-15 14:49 | Outpatient (CLI) | payer BC, SELFPAY ==
--- NOTE | 2024-06-15 14:51 | DI.US.S_ITS ---
PROCEDURE: US ABDOMEN COMPLETE INDICATIONS: RLQ abd pain, ongoing loose stool TECHNIQUE: Real-time scanning was performed of the abdominal and retroperitoneal organs, with image documentation. COMPARISON: [facility], US, US ABDOMEN COMPLETE, 08/21/2020, 9:41. FINDINGS: Liver: Liver is normal in size and increased in echogenicity. Gallbladder: Normal in appearance. No gallstones or gallbladder wall thickening. Biliary ducts: Intrahepatic bile ducts are non-dilated. Extrahepatic bile duct caliber measures 4.7 mm. Normal is 6-7 mm or less in diameter, or 10 mm or less post-cholecystectomy. Pancreas: Visualized portions of the pancreas are sonographically normal. Spleen: Spleen is normal in size and homogeneous in echotexture. Kidneys: Right kidney is surgically absent. Left kidney is normal in size and echotexture. Left kidney measures 12.5 cm long. No hydronephrosis or nephrolithiasis. No solid masses. Aorta: Visualized aorta is normal in caliber at less than 3 cm. Iliacs: Proximal common iliac arteries are normal in caliber at less than 2.5 cm. IVC: Intrahepatic inferior vena cava is patent. Miscellaneous: No free abdominal fluid. No obvious abnormality is seen within the right lower quadrant. IMPRESSION: Hepatic steatosis. Status post right nephrectomy. Dictated by: Dwight Cooper M.D. on 06/15/2024 at 15:41 Approved by: Dwight Cooper M.D. on 06/15/2024 at 15:43
== END ==
LOC: US 14:50
PROVIDERS: PCP Family Medicine; Referring Provider Family Medicine; Visit Provider Family Medicine
DX: K76.0 Fatty (change of) liver, not elsewhere classified (principal); R10.9 Unspecified abdominal pain; Z90.5 Acquired absence of kidney
CPT/HCPCS: 76700

== ENCOUNTER → 2024-06-21 11:45 | Outpatient (CLI) | payer BC, SELFPAY ==
--- NOTE | 2024-06-21 11:46 | DI.CT.S_ITS ---
PROCEDURE: CT ABDOMEN PELVIS WO CON INDICATIONS: RLQ pain 6 weeks, loose stool 3 months TECHNIQUE: After the administration of oral contrast, 5 mm thick sections acquired from the diaphragms to the symphysis. 5 mm coronal and sagittal reformats were performed. For radiation dose reduction, the following was used: automated exposure control, adjustment of mA and/or kV according to patient size. COMPARISON: None. FINDINGS: Image quality: Diagnostic. Lower Chest: No significant findings. ABDOMEN: Liver: No contour-deforming mass. Gallbladder: No radiopaque gallstones or wall thickening. Biliary ducts: No biliary dilation. Pancreas: No ductal dilation. Spleen: Size is within normal limits. Adrenal Glands: No adrenal nodules. Kidneys and Ureters: Status post right nephrectomy. No mass in this region. No focal lesions or hydronephrosis on the left. Stomach and Bowel: Normal colonic caliber, without significant wall thickening. The appendix is not definitely seen. No inflammatory changes . Peritoneum: No abnormal intraperitoneal fluid. No free air. Ventral Wall: No significant hernia. Abdominal Nodes: No retroperitoneal or mesenteric adenopathy by size criteria. Vessels: Aorta and inferior vena cava are normal in size. PELVIS: Pelvic Organs: Status post hysterectomy. No adnexal mass seen. Bladder: Unremarkable. Pelvic Nodes: No enlarged lymph nodes. Miscellaneous: No inguinal hernias are seen. Bones: No aggressive osseous abnormality. IMPRESSION: 1. No acute intra-abdominal abnormality is seen. 2. Status post right nephrectomy. No suspicious focal lesion seen. Dictated by: Matt Mancuso M.D. on 06/21/2024 at 14:10 Approved by: Matt Mancuso M.D. on 06/21/2024 at 14:16
== END ==
PROVIDERS: PCP Family Medicine; Referring Provider Family Medicine; Visit Provider Family Medicine
DX: R10.31 Right lower quadrant pain (principal); R19.7 Diarrhea, unspecified; Z90.5 Acquired absence of kidney; Z90.710 Acquired absence of both cervix and uterus
CPT/HCPCS: 74176

== ENCOUNTER → 2024-06-23 07:03 | Outpatient (CLI) | payer BC, SELFPAY ==
--- NOTE | 2024-06-23 07:04 | DI.ECHO.S_ITS ---
[facility] : : [address] : : [place] : : [id number] : : Phone: [phone] Echocardiogram Report + + :Name: ART DELGADILLO Study Date: 06/23/2024 Height: 63 in : :[facility] ReadingLocation: Weight: 167 lb : : Gender: Female BSA: 1.8 m2 : :: 1960 Age: 63 yrs BP: 130/74 mmHg: :Reason For Study: ABNORMAL EXERCISE STRESS TEST WITH POSITIVE : :INDUCIBLE ISCHEMIC : :Ordering Physician: LALO, : :HEATHER Performed By: Anne Marie De La Cruz : :Referring: HEATHER MAY : + + Interpretation Summary 1. The left ventricular contractility is normal. Estimated ejection fraction is greater than 60% with no segmental wall motion abnormalities. No LVH. No diastolic dysfunction. 2. The right ventricular contractility is normal. 3. All cardiac chambers are of normal size. 4. No significant valvular abnormalities. 5. No obvious intracardiac shunts. 6. No obvious intracardiac masses or thrombi. 7. No hemodynamically significant pericardial effusion. 8. Low right-sided filling pressures. Conclusion: Normal biventricular function with no significant valvular abnormalities. Procedure: A two-dimensional transthoracic echocardiogram with color flow and Doppler was performed. The study quality was technically adequate. There is no prior echocardiogram noted for this patient. The patient was in sinus bradycardia with heart rates between 52-63 bpm during the exam. Left Ventricle: The left ventricle is normal in size and wall thickness. The ejection fraction is estimated to be 60-65%. Diastolic parameters suggest probable normal left ventricular diastolic function and normal filling pressures. Right Ventricle: The right ventricle is normal in size and function. Atria: The left atrial size is normal. Right atrial size is normal. There is no Doppler evidence for an interatrial shunt. Mitral Valve: The mitral valve leaflets appear normal. There is no evidence of stenosis, fluttering, or prolapse. There is trace mitral regurgitation. Aortic Valve: The aortic valve is trileaflet. The aortic valve opens well. There is no aortic valve stenosis. There is trace aortic regurgitation. Tricuspid Valve: The tricuspid valve is normal. There is trace tricuspid regurgitation. Pulmonary artery pressures cannot be estimated because of the lack of a measurable TR jet velocity. Pulmonic Valve: The pulmonic valve leaflets are thin and pliable; valve motion is normal. There is no pulmonic valvular regurgitation. Great Vessels: The aortic root is normal size. The dimensions of the ascending aorta are normal. The IVC is of normal diameter and collapses greater than 50% with a sniff. This suggests a low right atrial pressure of 3 mm Hg. Pericardium/ Pleura There is no pericardial effusion. There is no pleural effusion. MMode/2D Measurements & Calculations LVIDd: 4.7 cm LVOT diam: 1.9 cm LVIDs: 3.2 cm Ao root diam: 2.8 cm FS: 31.3 % asc Aorta Diam: 2.7 cm IVSd: 0.94 cm Ao Arch Diam (Prox Trans): 2.7 cm LVPWd: 0.93 cm LV carrera. diameter/BSA (cm/m^2): 2.6 LV sys. diameter/BSA (cm/m^2): 1.8 LA A2 area: 15.9 cm2 RA long axis: 3.9 cm LA A4 area: 15.2 cm2 RA area: 11.6 cm2 LA length (vol): 4.7 cm RA vol: 29.2 ml LA vol: 43.5 ml RA : 16.3 ml/m2 LA vol index: 24.3 ml/m2 IVC diam: 1.4 cm RVD1 (basal): 3.1 cm RVD2 (mid): 2.6 cm TAPSE: 2.0 cm Doppler Measurements & Calculations Ao V2 max: 138.5 cm/sec LVOT Max Gabriel: 76.7 cm/sec Ao V2 mean: 86.0 cm/sec LV V1 max P.4 mmHg Ao max P.7 mmHg LV V1 VTI: 18.5 cm Ao mean P.4 mmHg MEHREEN(I,D): 1.8 cm2 Ao V2 VTI: 28.3 cm MEHREEN(V,D): 1.6 cm2 sev ratio: 0.65 MEHREEN indexed to BSA (cm^2/m^2): 1.0 MV E max gabriel: 88.8 cm/sec PA V2 max: 98.4 cm/sec MV A max gabriel: 70.3 cm/sec PA V2 mean: 61.3 cm/sec MV E/A: 1.3 PA mean P.8 mmHg Med Peak E' Gabriel: 10.6 cm/sec PA pr(Accel): 8.8 mmHg E/E' med: 8.4 Lat Peak E' Gabriel: 7.8 cm/sec E/E' lat: 11.4 E/e' average: 9.9 MV dec time: 0.19 sec SV(LVOT): 51.9 ml Reading Physician:MISAEL
== END ==
LOC: ECHO 07:03
PROVIDERS: PCP Family Medicine; Referring Provider Family Medicine; Visit Provider Family Medicine
DX: R94.39 Abnormal result of other cardiovascular function study (principal); R93.1 Abnormal findings on diagnostic imaging of heart and coronary circulation; I10 Essential (primary) hypertension; E78.5 Hyperlipidemia, unspecified
CPT/HCPCS: 93306

== ENCOUNTER → 2024-08-11 07:10 | Outpatient (CLI) | payer BC, SELFPAY ==
[2024-08-11 08:22] LABS: Cholesterol 215 mg/dL (140-199); HDL Cholesterol 70 mg/dL (40-60); Triglycerides 153 mg/dL (35-150)
== END ==
PROVIDERS: PCP Family Medicine; Referring Provider Family Medicine; Visit Provider Family Medicine
DX: E78.5 Hyperlipidemia, unspecified (principal)
CPT/HCPCS: 36415; 80061

== ENCOUNTER → 2024-11-15 07:49 | Outpatient (CLI) | payer MEDICARE, OTHER, SELFPAY ==
--- NOTE | 2024-11-15 18:52 | DI.NM.S_ITS ---
DATE OF SERVICE: 11/15/2024 NUCLEAR CARDIOLOGY MYOCARDIAL PERFUSION STUDY PROCEDURE: Exercise treadmill stress and rest myocardial perfusion imaging with gating to assess ejection fraction and regional wall motion. ORDERING PROVIDER: Bear Martinez MD INDICATIONS: The patient is a 63-year-old female with known coronary artery calcification and an abnormal standard exercise treadmill study. CARDIAC STRESS: The patient was able to exercise for 8 minutes 2 seconds on a standard Vern protocol suggesting very good exercise capacity with an JARED of -24%, achieving 10.1 METs. She had a mild hypertensive blood pressure response with a resting blood pressure of 150/80, increasing to a maximum of 220/80. Her maximum heart rate was 146 BPM (89% of her predicted maximum). She had moderate dyspnea but no chest discomfort or other anginal symptoms. Her resting ECG is normal but she develops 1 to 2 mm of down-sloping ST depression at 5 minutes into exercise, concerning for possible ischemia, but nonspecific with a hypertensive blood pressure response and no late ischemic changes. There were no arrhythmias. At 6 minutes 50 seconds of exercise at a heart rate of 134 BPM, 25.0 millicuries of technetium-99m Myoview was injected and she was imaged 15 minutes later using a gated SPECT acquisition protocol. Earlier in the day while at rest, she had been injected with 12.1 millicuries of technetium-99m Myoview and imaged 15 minutes later, again using a gated SPECT acquisition protocol. FINDINGS: 1. Raw data. There is fairly good myocardial tracer uptake but mild breast shadows are noted. The lung/heart ratio is normal at 0.30 with a normal TID ratio of 0.83. 2. Quantitated gated SPECT: Post-stress ejection fraction is 79% without any focal wall motion abnormality. Resting ejection fraction is 78% with a normal resting end-diastolic volume of 58 mL. 3. Myocardial perfusion imaging: Post-stress supine image shows a normal perfusion pattern without any significant perfusion defects, supported by normal perfusion imaging in the prone position. The resting images show an identical perfusion pattern without any areas of improvement. IMPRESSION: 1. Normal myocardial perfusion study. 2. No significant perfusion defects to suggest myocardial ischemia or previous myocardial infarction. 3. Normal left ventricular size and systolic function without focal wall motion abnormality. 4. Very good exercise capacity without angina but a moderate hypertensive blood pressure response to exercise with associated significant ST depression that is nonspecific given the hypertensive blood pressure response, and likely a false-positive given the normal scintigraphy. There were no arrhythmias. Yun Diaz - RS/carlo/BOOM doc#: [id number]/job#: [id number] dd: 11/15/2024 16:40:00 dt: 11/15/2024 17:35:00 DICTATING MD/COPIES TO: Juan F Solorzano MD; Bear Martinez MD COPIES MNE: ROBERTO;
== END ==
PROVIDERS: PCP Family Medicine; Referring Provider Family Medicine; Visit Provider Internal Medicine
DX: R94.39 Abnormal result of other cardiovascular function study (principal); I25.10 Atherosclerotic heart disease of native coronary artery without angina pectoris
CPT/HCPCS: 78452; 93017; A9502

== ENCOUNTER → 2025-01-05 07:04 | Outpatient (CLI) | payer MEDICARE, OTHER, SELFPAY ==
[2025-01-05 08:34] LABS: Hematocrit 37.3 % (36-46); Hemoglobin 12.8 g/dL (12.0-16.0); Mean Corpuscular HGB Conc 34.4 % (30-36); Mean Corpuscular Hemoglobin 30.2 PG (26-34); Mean Corpuscular Volume 87.8 fL (80-100); Platelet Count 213 X10^3/uL (150-400)
[2025-01-05 08:58] LABS: HEMOLYSIS < 15 (0-50); Iron 84 ug/dL (37-170); Protein (Total) Urine Random < 5 mg/dL (0-12); Protein Creatinine Ratio Urine 0.03 GRAM/24H
[2025-01-05 09:02] LABS: Albumin 4.2 g/dL (3.5-5.0); Blood Urea Nitrogen 17 mg/dL (7-17); Calcium 9.1 mg/dL (8.4-10.2); Carbon Dioxide 24 mmol/L (22-32); Chloride 105 mmol/L (98-107); Estimated Glomerular Filt Rate 56 mL/min (>60); Glucose 101 mg/dL (70-99); HEMOLYSIS < 15 (0-50); Magnesium 1.8 mg/dL (1.6-2.3); Phosphorous 3.1 mg/dL (2.8-4.1); Potassium 4.2 mmol/L (3.4-5.1); Sodium 136 mmol/L (137-145)
[2025-01-05 09:09] LABS: Percent Iron Saturation 27 % (15-50); Total Iron Binding Capacity 316 ug/dL (265-497); Transferrin 285 mg/dL (206-381)
[2025-01-05 09:12] LABS: Vitamin D 25 Hydroxy (D3) 31.2 ng/mL (30.0-100.0)
== END ==
PROVIDERS: PCP Family Medicine; Referring Provider Family Medicine; Visit Provider Internal Medicine Nephrology
DX: N18.31 Chronic kidney disease, stage 3a (principal); D63.1 Anemia in chronic kidney disease; N25.81 Secondary hyperparathyroidism of renal origin
CPT/HCPCS: 36415; 80069; 82306; 82570; 83540; 83550; 83735; 83970; 84156; 85027

== ENCOUNTER → 2025-01-11 10:47 | Outpatient (CLI) | payer MEDICARE, OTHER, SELFPAY ==
[2025-01-11 12:26] LABS: Cholesterol 227 mg/dL (140-199); HDL Cholesterol 84 mg/dL (40-60); Triglycerides 117 mg/dL (35-150)
== END ==
PROVIDERS: PCP Family Medicine; Referring Provider Internal Medicine; Visit Provider Internal Medicine
DX: E78.2 Mixed hyperlipidemia (principal)
CPT/HCPCS: 80061